=== PATIENT | female | born 1985 | race American Indian/Alaskan Native ===

== ENCOUNTER 2016-05-10 11:23 | Emergency (ER) | payer OTHER ==
[2016-05-10 11:35] VITALS: BP 127/84
[2016-05-10 12:36] LABS: Basophils % (Auto) 0.3 % (0.0-1.8); Eosinophils % (Auto) 1.7 % (0.0-4.3); Hematocrit 42.5 % (30.3-42.9); Hemoglobin 14.5 gm/dl (10.1-14.3); Mean Corpuscular HGB Conc 34 % (30-34); Mean Corpuscular Hemoglobin 32 pg (28-32); Mean Corpuscular Volume 93 fl (79-97); Platelet Count 277 K/mm3 (140-440); Red Blood Count 4.58 M/mm3 (3.65-5.03); White Blood Count 10.2 K/mm3 (4.5-11.0)
[2016-05-10 13:01] LABS: Alanine Aminotransferase 17 units/L (7-56); Albumin 4.1 g/dL (3.9-5); Albumin/Globulin Ratio 1.1 %; Alkaline Phosphatase 53 units/L (35-129); Anion Gap 20 mmol/L; BUN/Creatinine Ratio 12.22; Bilirubin,Total 0.6 mg/dL (0.1-1.2); Blood Urea Nitrogen 11 mg/dL (7-17); Calcium 8.6 mg/dL (8.4-10.2); Carbon Dioxide 21 mmol/L (22-30); Chloride 99.1 mmol/L (98-107); Glucose 161 mg/dL (65-100); Lipase 16 units/L (13-60); Potassium 3.8 mmol/L (3.6-5.0); Sodium 136 mmol/L (137-145); Total Protein 7.9 g/dL (6.3-8.2)
[2016-05-10 14:29] LABS: Bilirubin,Urine Negative (Negative); Blood,Urine Negative (Negative); Ketones,Urine Negative (Negative); Nitrite,Urine Negative (Negative); Protein,Urine <30 mg dL mg/dL (Negative); Urobilinogen,Urine < 0.2 mg/dL (<2.0)
[2016-05-10 14:30] LABS: Leukocyte Esterase,Urine Trace (Negative)
[2016-05-10 14:31] LABS: Mucus,Urine 1+ /HPF
== END 2016-05-11 02:45 | disposition left against medical advice (07) ==
LOC: ED 11:23
DX: R10.13 Epigastric pain (principal); R19.7 Diarrhea, unspecified; R07.9 Chest pain, unspecified; Z53.21 Procedure and treatment not carried out due to patient leaving prior to being seen by health care provider
CPT/HCPCS: 36415; 80053; 81001; 83690; 85025

== ENCOUNTER 2016-05-11 06:38 | Emergency (ER) | payer SELFPAY ==
[2016-05-11 11:47] LABS: Basophils % (Auto) 0.3 % (0.0-1.8); Eosinophils % (Auto) 1.1 % (0.0-4.3); Hematocrit 41.4 % (30.3-42.9); Mean Corpuscular HGB Conc 34 % (30-34); Mean Corpuscular Hemoglobin 32 pg (28-32); Mean Corpuscular Volume 93 fl (79-97); Platelet Count 293 K/mm3 (140-440); Red Blood Count 4.46 M/mm3 (3.65-5.03); Red Cell Distribution Width 12.1 % (13.2-15.2); White Blood Count 10.8 K/mm3 (4.5-11.0)
[2016-05-11] MEDS ORDERED: LIDOCAINE VISCOUS 2% PO ONE (17:00)
[2016-05-11] MEDS ORDERED: PROTONIX PO ONE (17:00)
[2016-05-11] MEDS ORDERED: NORCO 7.5/325 PO ONE (17:00)
[2016-05-11] MEDS ORDERED: ALUM-MAG HYDROX-SIMETH 200-200-20MG/5ML PO ONE (17:00)
--- NOTE | 2016-05-11 17:19 | Emergency Department Report ---
HPI - General Chief Complaint: Abdominal Pain Time Seen by Provider: 05/11/16 16:41 - HPI HPI: The patient is a 31-year-old female presents for evaluation of abdominal pain. The patient reports 2-3 days of epigastric abdominal pain, sharp in quality, currently 4/10 in severity, radiating to the back at times, and associated with nausea, and intermittent episodes of nonbilious, nonbloody emesis and loose watery stools. The patient denies fever, chills, night sweats, bright blood in the stool, dysuria, hematuria, flank pain, genital discharge, inability to pass flatus. ED Past Medical Hx - Past Medical History Hx Hypertension: Yes Additional medical history: gallstones - Surgical History Hx Cholecystectomy: Yes - Social History Smoking Status: Current Every Day Smoker Substance Use Type: Alcohol - Medications Home Medications: Home Medications Medication Instructions Recorded Confirmed Last Taken Type Phentermine HCl [Phentermine HCl] 37.5 mg PO DAILY 09/11/13 09/11/13 08/01/13 History 37.5 Sodium Bicarbonate/Sodium Cit 1 tab PO DAILY 09/11/13 09/17/13 09/07/13 09:00 History [[place] Heartburn Tab Eff] HYDROcodone/ACETAMINOPHEN [[place] 1 each PO Q4H PRN #20 tablet 09/17/13 Unknown Rx 5/325 Tablet] Cyclobenzaprine HCl [Flexeril 5 MG 5 mg PO Q8HR PRN #14 tab 05/11/16 Unknown Rx TAB] Omeprazole Magnesium [PriLOSEC Otc] 20 mg PO QDAY #14 tablet. 05/11/16 Unknown Rx Ondansetron [Zofran TAB] 4 mg PO Q8HR PRN #20 tablet 05/11/16 Unknown Rx ED Review of Systems ROS: Stated complaint: BREATHING PAIN Other details as noted in HPI Constitutional: denies: fever ENT: denies: throat or neck pain Respiratory: denies: cough, shortness of breath Cardiovascular: denies: chest pain Endocrine: denies unexplained weight loss or gain Gastrointestinal: reports abdominal pain, nausea Genitourinary: denies: dysuria Musculoskeletal: denies: leg swelling Skin: denies: rash Neurological: denies: headache Hematological/Lymphatic: denies: easy bleeding or easy bruising Psych: denies sadness or hopelessness Physical Exam - Physical Exam Vital Signs: Vital Signs 05/11/16 07:25 Temperature 98.2 F Pulse Rate 71 Respiratory 17 Rate Blood Pressure 131/80 O2 Sat by Pulse 100 Oximetry Physical Exam: General: well-nourished, well-developed, no acute distress Head: Normocephalic, atraumatic Eyes: normal sclera ENT: Mucous membranes are pink and moist Neck: trachea midline, neck supple, No neck stiffness, no cervical adenopathy Respiratory: Breath sounds equal bilaterally, no wheezing, rales, or rhonchi Cardio: S1 and S2 present, no murmurs, rubs, gallops, capillary refill is brisk Abdomen: Normoactive bowel sounds, soft abdomen, epigastric tenderness to palpation, no rigidity, no guarding or rebound tenderness Musc: No pitting edema Skin: No rash Neuro: no facial drooping, normal speech Psych: Normal affect ED Course Vital Signs 05/11/16 07:25 Temperature 98.2 F Pulse Rate 71 Respiratory 17 Rate Blood Pressure 131/80 O2 Sat by Pulse 100 Oximetry ED Medical Decision Making - Lab Data Result diagrams: 05/11/16 11:23 - Medical Decision Making The patient was seen and examined by myself. The patient is placed on a isotope hydrologist and continuous pulse ox. On initial evaluation, the patient was found to be in no distress. Evaluation orders are placed. The patient is given zofran for nausea, and a GI cocktail and tablet of [place] for pain. Lab results were non-concerning including nml WBC. X-ray of the abdomen is obtained and is negative for air-fluid levels, air under the diaphragm, or other signs of emergent disease process. Medical records are reviewed and revealed that the patient was found to have normal blood work during ED visit 24 hours ago, including normal lipase, LFTs, and WBC. The patient was reevaluated and reported that their symptoms were markedly improved. The patient is stable for discharge with outpatient follow- up. The patient is given follow-up and return instructions. The patient expressed understanding and agreed with the plan. The patient is discharged in stable condition. Critical care attestation.: If time is entered above; I have spent that time in minutes in the direct care of this critically ill patient, excluding procedure time. ED Disposition Clinical Impression: Abdominal pain, acute, epigastric Disposition: DISCHARGED TO HOME OR SELFCARE Is pt being admited?: No Does the pt Need Aspirin: No Condition: Stable Instructions: Peptic Ulcer (ED), Diet for Ulcers and Gastritis (ED), Gastroenteritis (ED), Abdominal Pain (ED) Prescriptions: Cyclobenzaprine HCl [Flexeril 5 MG TAB] 5 mg PO Q8HR PRN #14 tab PRN Reason: Pain Omeprazole Magnesium [PriLOSEC Otc] 20 mg PO QDAY #14 tablet. Ondansetron [Zofran TAB] 4 mg PO Q8HR PRN #20 tablet PRN Reason: Nausea Referrals: PRIMARY CARE,MD [Primary Care Provider] - 3-5 Days Time of Disposition: 17:18
[2016-05-11 17:27] VITALS: BP 116/70
--- NOTE | 2016-05-12 07:42 | XRay Report ---
ABDOMINAL SERIES: History: Epigastric abdominal pain. Erect chest film shows no acute or significant changes involving the heart or lung kowalski. There is no evidence of free air beneath the diaphragms. The gas pattern within the abdomen is unremarkable. There is no evidence of bowel dilatation, significant air-fluid levels, or masses. The psoas margins are adequately visualized. Cholecystectomy changes an intrauterine device are noted. IMPRESSION: No acute abdominal process appreciated.
== END 2016-05-11 18:13 | disposition home or self-care (01) ==
LOC: ED 06:38
DX: R10.13 Epigastric pain (principal); I10 Essential (primary) hypertension; F17.200 Nicotine dependence, unspecified, uncomplicated; Z90.49 Acquired absence of other specified parts of digestive tract
CPT/HCPCS: 36415; 74022; 85025; 99284

== ENCOUNTER 2016-08-21 17:43 | Emergency (ER) | payer SELFPAY ==
[2016-08-21 18:57] LABS: Basophils % (Auto) 0.4 % (0.0-1.8); Eosinophils % (Auto) 1.9 % (0.0-4.3); Hematocrit 42.6 % (30.3-42.9); Hemoglobin 14.5 gm/dl (10.1-14.3); Mean Corpuscular HGB Conc 34 % (30-34); Mean Corpuscular Hemoglobin 32 pg (28-32); Mean Corpuscular Volume 93 fl (79-97); Platelet Count 351 K/mm3 (140-440); Red Blood Count 4.56 M/mm3 (3.65-5.03); Red Cell Distribution Width 12.4 % (13.2-15.2); White Blood Count 13.5 K/mm3 (4.5-11.0)
[2016-08-21 19:14] LABS: Anion Gap 23 mmol/L; Blood Urea Nitrogen 18 mg/dL (7-17); Calcium 9.9 mg/dL (8.4-10.2); Carbon Dioxide 22 mmol/L (22-30); Glucose 95 mg/dL (65-100); Potassium 4.8 mmol/L (3.6-5.0); Sodium 137 mmol/L (137-145)
[2016-08-21 19:47] LABS: Bilirubin,Urine NEG (Negative); Blood,Urine LG (Negative); Ketones,Urine 80 mg/dL (Negative); Leukocyte Esterase,Urine MOD (Negative); Mucus,Urine FEW /HPF; Nitrite,Urine NEG (Negative); Protein,Urine <15 mg/dL mg/dL (Negative); Urobilinogen,Urine < 2.0 mg/dL (<2.0)
--- NOTE | 2016-08-21 20:30 | XRay Report ---
FINAL REPORT EXAM: XR ABDOMEN 2V HISTORY: Abdominal Pain, PATIENT HAS HAD A GASTRIC SLEEVE OPERATION ON July AND HAS CONSTIPATION COMPARISON: None available. FINDINGS: Supine and upright AP views of the abdomen obtained. IUD projects over the pelvis. Surgical clips left upper quadrant compatible with recent gastric sleeve procedure. Surgical clips right upper quadrant from probable prior cholecystectomy. There is diffuse gas-filled prominence of small bowel loops in mid abdomen concerning for postoperative ileus. Developing partial small bowel obstruction cannot be entirely excluded. Moderate stool in the rectosigmoid colon. No gross pathological calcifications. IMPRESSION: Gas-filled prominence of small bowel loops in the mid abdomen concerning for postoperative ileus. Developing partial small bowel obstruction cannot be entirely excluded.
[2016-08-21] MEDS ORDERED: TYLENOL PO ONE (21:46)
[2016-08-21] MEDS ORDERED: TYLENOL ONE (21:47)
[2016-08-22] MEDS ORDERED: NACL ONE (01:52)
[2016-08-22] MEDS ORDERED: CEPHULAC PO ONE (01:56)
--- NOTE | 2016-08-22 02:02 | Emergency Department Report ---
HPI - HPI HPI: Room 26 The patient is a 31-year-old female presenting with a chief complaint of constipation. The patient states she had a gastric sleeve performed in [place] at 08/14/2016. The patient states she came to the emergency department because at 11:00 this morning she noticed hard stool in her rectum that she was unable to pass. The patient states her last bowel movement occurred approximately 3 days ago. Patient states she attempted to use enema and Ex-Lax without success. The patient states she attempted digital manipulation but was still unable to have a bowel movement. Patient denies nausea vomiting or fever. Location: Gastrointestinal system Duration: [see above] Quality:. Constipation Severity: Severe Modifying factors: [see above] Context: [see above] Mode of transportation: [not driving] <KIRK KIRK - Last Filed: 08/22/16 05:44> <MAGUE MUNSON - Last Filed: 08/22/16 08:47> - General Chief Complaint: Abdominal Pain Time Seen by Provider: 08/22/16 01:39 ED Past Medical Hx - Past Medical History Hx Hypertension: Yes Additional medical history: Peptic ulcer disease - Surgical History Hx Cholecystectomy: Yes Additional Surgical History: Lumpectomy-benign - Family History Family history: no significant - Social History Smoking Status: Current Every Day Smoker (1/2 pack per day) Substance Use Type: None <KIRK KIRK - Last Filed: 08/22/16 05:44> <MAGUE MUNSON - Last Filed: 08/22/16 08:47> - Medications Home Medications: Home Medications Medication Instructions Recorded Confirmed Last Taken Type Phentermine HCl [Phentermine HCl] 37.5 mg PO DAILY 09/11/13 09/11/13 08/01/13 History 37.5 Sodium Bicarbonate/Sodium Cit 1 tab PO DAILY 09/11/13 09/17/13 09/07/13 09:00 History [[place] Heartburn Tab Eff] HYDROcodone/ACETAMINOPHEN [[place] 1 each PO Q4H PRN #20 tablet 09/17/13 Unknown Rx 5/325 Tablet] Cyclobenzaprine HCl [Flexeril 5 MG 5 mg PO Q8HR PRN #14 tab 05/11/16 Unknown Rx TAB] Omeprazole Magnesium [PriLOSEC Otc] 20 mg PO QDAY #14 tablet. 05/11/16 Unknown Rx Ondansetron [Zofran TAB] 4 mg PO Q8HR PRN #20 tablet 05/11/16 Unknown Rx Docusate Sodium [Colace] 100 mg PO BID #60 capsule 08/22/16 Unknown Rx Lactulose [Cephulac] 20 gm PO QDAY #90 ml 08/22/16 Unknown Rx Sulfamethoxazole/Trimethoprim 1 each PO BID #14 tablet 08/22/16 Unknown Rx [Bactrim DS TAB] ED Review of Systems ROS: Stated complaint: CONSTIPATED/PAIN/HOT/COLD SWEATS Other details as noted in HPI Comment: All other systems reviewed and negative Constitutional: denies: chills, fever Eyes: denies: eye pain, eye discharge, vision change ENT: denies: ear pain, throat pain Respiratory: denies: cough, shortness of breath, wheezing Cardiovascular: denies: chest pain, palpitations Endocrine: no symptoms reported Gastrointestinal: abdominal pain, constipation. denies: nausea, vomiting, diarrhea Genitourinary: denies: urgency, dysuria, discharge Musculoskeletal: denies: back pain, joint swelling, arthralgia Skin: denies: rash, lesions Neurological: denies: headache, weakness, paresthesias Psychiatric: denies: anxiety, depression Hematological/Lymphatic: denies: easy bleeding, easy bruising <KIRK KIRK - Last Filed: 08/22/16 05:44> ROS: Stated complaint: CONSTIPATED/PAIN/HOT/COLD SWEATS Other details as noted in HPI <MAGUE MUNSON - Last Filed: 08/22/16 08:47> Physical Exam - Physical Exam Vital Signs: Vital Signs 08/21/16 08/21/16 18:04 18:16 Temperature 98.8 F 98.8 F Pulse Rate 106 H 106 H Respiratory 18 Rate Blood Pressure 117/84 Blood Pressure 117/84 [Right] O2 Sat by Pulse 100 100 Oximetry Physical Exam: GENERAL: The patient is well-developed well-nourished female lying on stretcher not appearing to be in acute distress. [] HEENT: Normocephalic. Atraumatic. Extraocular motions are intact. Patient has moist mucous membranes. NECK: Supple. Trachea midline CHEST/LUNGS: Clear to auscultation. There is no respiratory distress noted. HEART/CARDIOVASCULAR: Regular. There is no tachycardia. There is no gallop rub or murmur. ABDOMEN: Abdomen is soft, with appropriate postop tenderness. There is no tenderness to palpation in the lower abdomen. Patient has normal bowel sounds. There is no abdominal distention. SKIN: There is no rash. There is no edema. There is no diaphoresis. Abdominal surgical sites are clean dry and intact. NEURO: The patient is awake, alert, and oriented. The patient is cooperative. The patient has normal speech MUSCULOSKELETAL: There is no evidence of acute injury. <KIRK KIRK - Last Filed: 08/22/16 05:44> - Physical Exam Vital Signs: Vital Signs 08/21/16 08/21/16 18:04 18:16 Temperature 98.8 F 98.8 F Pulse Rate 106 H 106 H Respiratory 18 Rate Blood Pressure 117/84 Blood Pressure 117/84 [Right] O2 Sat by Pulse 100 100 Oximetry <MAGUE MUNSON - Last Filed: 08/22/16 08:47> ED Course Vital Signs 08/21/16 08/21/16 18:04 18:16 Temperature 98.8 F 98.8 F Pulse Rate 106 H 106 H Respiratory 18 Rate Blood Pressure 117/84 Blood Pressure 117/84 [Right] O2 Sat by Pulse 100 100 Oximetry - Reevaluation(s) Reevaluation #1: 08/22/16 ~04:00 Manual disimpaction performed for as long as patient would tolerate. Soapsuds enema performed afterwards <KIRK KIRK - Last Filed: 08/22/16 05:44> Vital Signs 08/21/16 08/21/16 18:04 18:16 Temperature 98.8 F 98.8 F Pulse Rate 106 H 106 H Respiratory 18 Rate Blood Pressure 117/84 Blood Pressure 117/84 [Right] O2 Sat by Pulse 100 100 Oximetry <MAGUE MUNSON - Last Filed: 08/22/16 08:47> ED Medical Decision Making - Lab Data Result diagrams: 08/21/16 18:43 08/21/16 18:43 Laboratory Tests 08/21/16 08/21/16 08/21/16 18:08 18:43 18:43 WBC 13.5 H RBC 4.56 Hgb 14.5 H Hct 42.6 MCV 93 MCH 32 MCHC 34 RDW 12.4 L Plt Count 351 Lymph % (Auto) 15.0 D[place] % (Auto) 5.0 Eos % (Auto) 1.9 Baso % (Auto) 0.4 Lymph # 2.0 Dickey # 0.7 Eos # 0.3 Baso # 0.1 Seg Neutrophils % 77.7 H Seg Neutrophils # 10.5 H Sodium 137 Potassium 4.8 Chloride 97.0 L Carbon Dioxide 22 Anion Gap 23 BUN 18 H Creatinine 0.8 Estimated GFR > 60 BUN/Creatinine Ratio 22.50 Glucose 95 Calcium 9.9 Urine Color Yellow Urine Turbidity Clear Urine pH 6.0 Ur Specific Williams 1.018 Urine Protein <15 mg/dl Urine Glucose (UA) Neg Urine Ketones 80 Urine Blood Lg Urine Nitrite Neg Ur Reducing Substances Not Reportable Urine Bilirubin Neg Urine Ictotest Not Reportable Urine Urobilinogen < 2.0 Ur Leukocyte Esterase Mod Urine WBC (Auto) 45.0 H Urine RBC (Auto) 100.0 U Epithel Cells (Auto) 10.0 Urine Mucus Few Urine HCG, Qual Negative - Radiology Data Radiology results: report reviewed (two-view abdominal x-ray, CT abdomen and pelvis), image reviewed (two-view abdominal x-ray, CT abdomen and pelvis) interpreted by me: Abdominal x-ray 2 view- air-fluid levels seen an upright abdomen. Stool seen in colon Abdominal x-ray (read by radiologist)-gastrointestinal prominence of small bowel loops in the mid abdomen concerning for postoperative ileus. Developing partial small bowel obstruction cannot be entirely excluded CT abdomen and pelvis (read by radiologist)-findings concerning for possible postoperative ileus. Mild dilation of large and small bowel loops. A large amount of stool in the rectosigmoid colon. This may continue to ileus. Appendix is normal in caliber. No inflammatory changes in the appendix. Surgical changes of gastric sleeve procedure. No free air or abscess. No other gross acute findings - Differential Diagnosis fecal impaction, SBO, constipation <KIRK KIRK - Last Filed: 08/22/16 05:44> - Lab Data Result diagrams: 08/21/16 18:43 08/21/16 18:43 - Medical Decision Making Patient had significant stool output after GoLYTELY and reports feeling better. She'll be discharged as per Dr. Kirk's plan with medication for UTI and constipation <MAGUE MUNSON - Last Filed: 08/22/16 08:47> Critical care attestation.: If time is entered above; I have spent that time in minutes in the direct care of this critically ill patient, excluding procedure time. <KIRK KIRK - Last Filed: 08/22/16 05:44> Critical care attestation.: If time is entered above; I have spent that time in minutes in the direct care of this critically ill patient, excluding procedure time. <MAGUE MUNSON - Last Filed: 08/22/16 08:47> ED Disposition <KIRK KIRK - Last Filed: 08/22/16 05:44> Is pt being admited?: No Does the pt Need Aspirin: No Time of Disposition: 08:47 <MAGUE MUNSON - Last Filed: 08/22/16 08:47> Clinical Impression: Constipation, UTI (urinary tract infection) Disposition: DISCHARGED TO HOME OR SELFCARE Condition: Stable Instructions: Constipation (ED) Prescriptions: Docusate Sodium [Colace] 100 mg PO BID #60 capsule Lactulose [Cephulac] 20 gm PO QDAY #90 ml Sulfamethoxazole/Trimethoprim [Bactrim DS TAB] 1 each PO BID #14 tablet Referrals: JEANE VERGARA MD [Primary Care Provider] - 3-5 Days
--- NOTE | 2016-08-22 03:38 | Cat Scan Report ---
FINAL REPORT EXAM: CT ABDOMEN PELVIS W CON HISTORY: abdominal pain, constipation. Recent gastric slee COMPARISON: None available. TECHNIQUE: Contiguous axial images were obtained. Additional sagittal and coronal reformatted images were obtained. Administration of IV contrast given per institution protocol. Images submitted for interpretation. FINDINGS: Large amount of stool in the rectosigmoid colon. Mild diffuse prominence of the colon. Colon measures up to 5 centimeters in diameter. Fluid-like stool within the right colon and transverse colon. Moderate stool in the left colon. Portion of the distal descending colon and sigmoid colon are decompressed. This may be a transient finding. No twisting of the sigmoid colon to suggest volvulus. The appendix is gas-filled and normal in caliber. High attenuation material within distal appendix may reflect appendicolith or inspissated stool. Recent gastric sleeve procedure. No free air or abscess. Mild dilatation of small bowel loops in the mid abdomen measuring up to 3 centimeters. Lung bases are clear. Mild focal fatty infiltration of the liver along the falciform ligament. Gallbladder surgically absent. Common bile duct measures 3 millimeters at the pancreatic head. Spleen, pancreas, adrenal glands are grossly unremarkable. No solid renal lesion or hydronephrosis. Aorta and IVC normal in caliber. IUD is present within the uterus. Otherwise, uterus and ovary are grossly unremarkable. No free fluid or lymphadenopathy. Bony pelvis and lumbar spine are grossly intact. IMPRESSION: Findings concerning for possible postoperative ileus. Mild dilatation of large and small bowel loops. Large amount of stool in the rectosigmoid colon. This may contribute to ileus. The appendix is normal in caliber. No inflammatory changes the appendix. Surgical changes of gastric sleeve procedure. No free air or abscess. No other gross acute findings.
[2016-08-22] MEDS ORDERED: FLEET MINERAL OIL PR ONE (04:54)
[2016-08-22] MEDS ORDERED: GOLYTELY PO ONE (05:53)
[2016-08-22 09:27] VITALS: BP 120/87
== END 2016-08-22 09:28 | disposition home or self-care (01) ==
LOC: ED 17:43
DX: K59.00 Constipation, unspecified (principal); N39.0 Urinary tract infection, site not specified; I10 Essential (primary) hypertension; F17.200 Nicotine dependence, unspecified, uncomplicated; Z90.49 Acquired absence of other specified parts of digestive tract; Z90.89 Acquired absence of other organs
CPT/HCPCS: 36415; 74020; 74177; 80048; 81001; 81025; 85025; 99285; Q9967

== ENCOUNTER 2019-06-22 22:07 | Emergency (ER) | payer MEDICAID ==
[2019-06-22 22:19] VITALS: BP 120/52
[2019-06-22] MEDS ORDERED: ACETAMINOPHEN 500 MG TAB PO ONE (22:39)
--- NOTE | 2019-06-22 22:45 | Emergency Department Report ---
ED General Adult HPI - General Chief complaint: Dental/Oral Stated complaint: TOOTHACHE HEADACHE Source: patient Mode of arrival: Ambulatory Limitations: No Limitations - History of Present Illness Initial comments: Patient is a A0 34-year-old -Lith[place]ian female who is approximately 20 weeks gestation and who has a past medical history of hypertension presents to the ED with complaint of acute onset persistent severe right maxillary premolar and molar toothache with swollen right maxillary gums for the last 2 weeks worse in the last 2 days. Patient states that she is currently taking amoxicillin 500 mg twice a day but that her symptoms got worse in the last 12 hours. Patient denies dizziness, syncope, chest pain, fever, chills, cough, sore throat, headache, change in vision, abdominal pain, vaginal bleeding, dysuria, urinary frequency and urgency or shortness of breath. MD Complaint: dental pain; swollen gums -: Sudden, week(s) (2) Location: mouth Radiation: non-radiation Severity scale (0 -10): 7 Quality: aching, sharp Consistency: constant Improves with: none Worsens with: none Associated Symptoms: denies other symptoms. denies: confusion, chest pain, cough, diaphoresis, fever/chills, headaches, loss of appetite, malaise, nausea/vomiting, seizure, shortness of breath, syncope, other Treatments Prior to Arrival: none - Related Data Home Medications Medication Instructions Recorded Confirmed Last Taken Phentermine HCl 37.5 mg PO DAILY 09/11/13 09/11/13 08/01/13 37.5 Sodium Bicarbonate/Sod Citrat 1 tab PO DAILY 09/11/13 09/17/13 09/07/13 09:00 [[facility]ie-[place] Heartburn Tab Eff] Previous Rx's Medication Instructions Recorded Last Taken Type HYDROcodone/ACETAMINOPHEN [Jupiter 1 each PO Q4H PRN #20 tablet 09/17/13 Unknown Rx 5/325 Tablet] Cyclobenzaprine HCl [Flexeril 5 MG 5 mg PO Q8HR PRN #14 tab 05/11/16 Unknown Rx TAB] Omeprazole Magnesium [PriLOSEC Otc] 20 mg PO QDAY #14 tablet. 05/11/16 Unknown Rx Ondansetron [Zofran TAB] 4 mg PO Q8HR PRN #20 tablet 05/11/16 Unknown Rx Docusate Sodium [Colace] 100 mg PO BID #60 capsule 08/22/16 Unknown Rx Lactulose [Cephulac] 20 gm PO QDAY #90 ml 08/22/16 Unknown Rx Sulfamethoxazole/Trimethoprim 1 each PO BID #14 tablet 08/22/16 Unknown Rx [Bactrim DS TAB] Acetaminophen [Acetaminophen TAB] 500 mg PO Q6HR PRN #60 tablet 06/22/19 Unknown Rx Clindamycin [Clindamycin CAP] 300 mg PO Q8HR #60 capsule 06/22/19 Unknown Rx Allergies Allergy/AdvReac Type Severity Reaction Status Date / Time No Known Allergies Allergy Verified 05/11/16 07:35 ED Review of Systems ROS: Stated complaint: TOOTHACHE HEADACHE Other details as noted in HPI Constitutional: denies: chills, fever Eyes: denies: eye pain, eye discharge, vision change ENT: dental pain (painful right maxillary premolar and molar teeth), other (swollen right maxillary gums). denies: ear pain, throat pain Respiratory: denies: cough, shortness of breath, wheezing Cardiovascular: denies: chest pain, palpitations Endocrine: no symptoms reported Gastrointestinal: denies: abdominal pain, nausea, diarrhea Genitourinary: denies: urgency, dysuria, discharge Musculoskeletal: denies: back pain, joint swelling, arthralgia Skin: denies: rash, lesions Neurological: denies: headache, weakness, paresthesias Psychiatric: denies: anxiety, depression Hematological/Lymphatic: denies: easy bleeding, easy bruising ED Past Medical Hx - Past Medical History Previous Medical History?: Yes Hx Hypertension: Yes Additional medical history: Peptic ulcer disease - Surgical History Past Surgical History?: Yes Hx Cholecystectomy: Yes Additional Surgical History: Lumpectomy-benign - Social History Smoking Status: Current Every Day Smoker Substance Use Type: Alcohol, Marijuana - Medications Home Medications: Home Medications Medication Instructions Recorded Confirmed Last Taken Type Phentermine HCl 37.5 mg PO DAILY 09/11/13 09/11/13 08/01/13 History 37.5 Sodium Bicarbonate/Sod Citrat 1 tab PO DAILY 09/11/13 09/17/13 09/07/13 09:00 History [[facility]ie-[place] Heartburn Tab Eff] HYDROcodone/ACETAMINOPHEN [Jupiter 1 each PO Q4H PRN #20 tablet 09/17/13 Unknown Rx 5/325 Tablet] Cyclobenzaprine HCl [Flexeril 5 MG 5 mg PO Q8HR PRN #14 tab 05/11/16 Unknown Rx TAB] Omeprazole Magnesium [PriLOSEC Otc] 20 mg PO QDAY #14 tablet. 05/11/16 Unknown Rx Ondansetron [Zofran TAB] 4 mg PO Q8HR PRN #20 tablet 05/11/16 Unknown Rx Docusate Sodium [Colace] 100 mg PO BID #60 capsule 08/22/16 Unknown Rx Lactulose [Cephulac] 20 gm PO QDAY #90 ml 08/22/16 Unknown Rx Sulfamethoxazole/Trimethoprim 1 each PO BID #14 tablet 08/22/16 Unknown Rx [Bactrim DS TAB] Acetaminophen [Acetaminophen TAB] 500 mg PO Q6HR PRN #60 tablet 06/22/19 Unknown Rx Clindamycin [Clindamycin CAP] 300 mg PO Q8HR #60 capsule 06/22/19 Unknown Rx ED Physical Exam - General Limitations: No Limitations General appearance: alert, in no apparent distress - Head Head exam: Present: atraumatic, normocephalic, normal inspection - Eye Eye exam: Present: normal appearance, PERRL, EOMI Pupils: Present: normal accommodation - ENT ENT exam: Present: mucous membranes moist, TM's normal bilaterally, normal external ear exam, other (swollen tender right maxillary gingiva; severely tender right maxillary premolar and molar teeth) - Neck Neck exam: Present: normal inspection, full ROM. Absent: tenderness, lymphadenopathy - Respiratory Respiratory exam: Present: normal lung sounds bilaterally. Absent: respiratory distress, wheezes, rhonchi, chest wall tenderness - Cardiovascular Cardiovascular Exam: Present: normal rhythm, tachycardia, normal heart sounds. Absent: systolic murmur, diastolic murmur, rubs, gallop - GI/Abdominal GI/Abdominal exam: Present: soft, normal bowel sounds. Absent: tenderness, guarding, diminished bowel sounds, hyperactive bowel sounds - Extremities Exam Extremities exam: Present: normal inspection, full ROM, normal capillary refill. Absent: pedal edema - Back Exam Back exam: Present: normal inspection, full ROM. Absent: tenderness, CVA tenderness (R), CVA tenderness (L), muscle spasm, paraspinal tenderness, vertebral tenderness - Neurological Exam Neurological exam: Present: alert, oriented X3, CN II-XII intact, normal gait, reflexes normal - Psychiatric Psychiatric exam: Present: normal affect, normal mood - Skin Skin exam: Present: warm, dry, intact, normal color. Absent: rash ED Course Vital Signs 06/22/19 22:11 Temperature 98.6 F Pulse Rate 108 H Respiratory 18 Rate Blood Pressure 120/52 O2 Sat by Pulse 98 Oximetry ED Medical Decision Making - Medical Decision Making This is a A0 34-year-old -Lithuanian female who is approximately 20 weeks gestation and who presented to the ED with complaint of acute onset persistent severe painful swollen right maxillary gingiva and severely painful premolar and molar toothache for the last 2 weeks worse in the last 3 days. In the ED, patient is alert and oriented x3 and is not in distress but tachycardic in triage. Patient was treated for pain with Tylenol in the ED and discharged home on clindamycin and Tylenol as needed. Patient was advised to follow-up with her dentist in 7 to 10 days for reevaluation or return to the ED immediately if symptoms get worse. Tachycardia that was initially elicited during triage resolved before the patient will discharge. - Differential Diagnosis dental abscess; gingivitis; dental caries; lymphadenopathy Critical care attestation.: If time is entered above; I have spent that time in minutes in the direct care of this critically ill patient, excluding procedure time. ED Disposition Clinical Impression: Acute gingivitis, Dental caries, Dental abscess Disposition: TO HOME OR SELFCARE Is pt being admited?: No Does the pt Need Aspirin: No Condition: Stable Instructions: Dental Abscess (ED), Gingivitis (ED), Dental Caries (ED) Additional Instructions: Take medication with food, drink plenty of fluids and follow-up with your primary care physician in 7 to 10 days for reevaluation. Return to the ED immediately if symptoms get worse. Prescriptions: Acetaminophen [Acetaminophen TAB] 500 mg PO Q6HR PRN #60 tablet PRN Reason: Pain , Severe (7-10) Clindamycin [Clindamycin CAP] 300 mg PO Q8HR #60 capsule Referrals: [facility] [Outside] - 7-10 days Time of Disposition: 22:42 Print Language: SENEGALESE
== END 2019-06-22 22:48 | disposition home or self-care (01) ==
LOC: ED 22:07
DX: K05.00 Acute gingivitis, plaque induced (principal); K04.7 Periapical abscess without sinus; K02.9 Dental caries, unspecified; F17.200 Nicotine dependence, unspecified, uncomplicated; F12.90 Cannabis use, unspecified, uncomplicated; I10 Essential (primary) hypertension; Z98.890 Other specified postprocedural states; Z79.899 Other long term (current) drug therapy; Z90.49 Acquired absence of other specified parts of digestive tract
CPT/HCPCS: 99282

== ENCOUNTER 2020-07-11 21:38 | Emergency (ER) | payer MEDICAID ==
--- NOTE | 2020-07-11 22:27 | Emergency Department Report ---
ED General Adult HPI - General Chief complaint: Skin/Abscess/Foreign Body Stated complaint: INFECTION IN NAVAL Source: patient Mode of arrival: Ambulatory Limitations: No Limitations - History of Present Illness Initial comments: Patient is a 35-year-old -Swazi female with no past medical history presents to the ED with complaint of acute onset painful swollen erythematous maculopapular rash around her navel for the last 2 days. Patient states that the pain the swelling of worsened in the last 12 hours. Patient states that the pain is worse with movement or any lifting. Patient denies fever, chills, nausea, vomiting, diarrhea, dizziness, syncope, traumatic injury, headache, chest pain, shortness of breath, lightheadedness or change in vision. MD Complaint: swollen, erythematous maculopapular rash around the navel -: Sudden, days(s) (2) Location: abdomen Radiation: non-radiation Severity scale (0 -10): 5 Quality: aching, sharp Consistency: constant Improves with: none Worsens with: movement Associated Symptoms: denies other symptoms, rash (swollen painful erythematous maculopapular rashes on the navel). denies: confusion, chest pain, cough, diaphoresis, fever/chills, headaches, loss of appetite, malaise, nausea/vomiting, seizure, shortness of breath, syncope, weakness Treatments Prior to Arrival: none - Related Data Home Medications Medication Instructions Recorded Confirmed Last Taken Melatonin 2 cap PO HS PRN 10/17/19 10/31/19 10/30/19 Vitamin 1 tab PO DAILY 10/17/19 10/31/19 10/30/19 Previous Rx's Medication Instructions Recorded Last Taken Type Ciprofloxacin HCl 250 mg PO BID #14 tablet 11/04/19 Unknown Rx Docusate Sodium [Colace] 100 mg PO BID PRN #60 capsule 11/04/19 Unknown Rx Ferrous Sulfate [Feosol 325 MG tab] 325 mg PO BID #60 tablet 11/04/19 Unknown Rx Ibuprofen [Motrin] 600 mg PO Q6H PRN #30 tablet 11/04/19 Unknown Rx oxyCODONE /ACETAMINOPHEN [Percocet 1 tab PO Q6HR PRN #40 tablet 11/04/19 Unknown Rx 5/325] Ibuprofen [Motrin] 800 mg PO Q8HR PRN #30 tablet 07/11/20 Unknown Rx Ondansetron [Zofran Odt] 4 mg PO Q8HR PRN #15 tab.rapdis 07/11/20 Unknown Rx Sulfamethoxazole/Trimethoprim 1 each PO Q12H #20 tablet 07/11/20 Unknown Rx [Bactrim DS TAB] Allergies Allergy/AdvReac Type Severity Reaction Status Date / Time No Known Allergies Allergy Verified 05/11/16 07:35 ED Review of Systems ROS: Stated complaint: INFECTION IN NAVAL Other details as noted in HPI Constitutional: denies: chills, fever Eyes: denies: eye pain, eye discharge, vision change ENT: denies: ear pain, throat pain Respiratory: denies: cough, shortness of breath, wheezing Cardiovascular: denies: chest pain, palpitations Endocrine: no symptoms reported Gastrointestinal: abdominal pain (localized mild pain around the navel due to erythematous maculopapular rash). denies: nausea, vomiting, diarrhea Genitourinary: denies: urgency, dysuria, discharge Musculoskeletal: denies: back pain, joint swelling, arthralgia Skin: rash (Erythematous maculopapular nonfluctuant swollen rash on the umbilical navel area). denies: lesions, change in color, change in hair/nails, pruritus, other Neurological: denies: headache, weakness, paresthesias Psychiatric: denies: anxiety, depression Hematological/Lymphatic: denies: easy bleeding, easy bruising ED Past Medical Hx - Past Medical History Hx Hypertension: No Hx Heart Attack/AMI: No Hx Diabetes: No Hx Deep Vein Thrombosis: No Hx Liver Disease: No Hx Renal Disease: No Hx Sickle Cell Disease: No Hx Seizures: No Hx Asthma: No Hx COPD: No Hx HIV: No Additional medical history: Peptic ulcer disease, SBO - Surgical History Hx Pacemaker: No Hx Internal Defibrillator: No Hx Cholecystectomy: Yes Additional Surgical History: Lumpectomy-benign, gastric sleeve - Social History Smoking Status: Current Every Day Smoker Substance Use Type: Alcohol, Marijuana - Medications Home Medications: Home Medications Medication Instructions Recorded Confirmed Last Taken Type Melatonin 2 cap PO HS PRN 10/17/19 10/31/19 10/30/19 History Vitamin 1 tab PO DAILY 10/17/19 10/31/19 10/30/19 History Ciprofloxacin HCl 250 mg PO BID #14 tablet 11/04/19 Unknown Rx Docusate Sodium [Colace] 100 mg PO BID PRN #60 capsule 11/04/19 Unknown Rx Ferrous Sulfate [Feosol 325 MG tab] 325 mg PO BID #60 tablet 11/04/19 Unknown Rx Ibuprofen [Motrin] 600 mg PO Q6H PRN #30 tablet 11/04/19 Unknown Rx oxyCODONE /ACETAMINOPHEN [Percocet 1 tab PO Q6HR PRN #40 tablet 11/04/19 Unknown Rx 5/325] Ibuprofen [Motrin] 800 mg PO Q8HR PRN #30 tablet 07/11/20 Unknown Rx Ondansetron [Zofran Odt] 4 mg PO Q8HR PRN #15 tab.rapdis 07/11/20 Unknown Rx Sulfamethoxazole/Trimethoprim 1 each PO Q12H #20 tablet 07/11/20 Unknown Rx [Bactrim DS TAB] ED Physical Exam - General Limitations: No Limitations General appearance: alert, in no apparent distress - Head Head exam: Present: atraumatic, normocephalic, normal inspection - Eye Eye exam: Present: normal appearance, PERRL, EOMI Pupils: Present: normal accommodation - ENT ENT exam: Present: normal exam, normal orophraynx, mucous membranes moist, TM's normal bilaterally, normal external ear exam - Neck Neck exam: Present: normal inspection, full ROM - Respiratory Respiratory exam: Present: normal lung sounds bilaterally. Absent: respiratory distress, wheezes, rales, rhonchi, chest wall tenderness, accessory muscle use, decreased breath sounds, prolonged expiratory - Cardiovascular Cardiovascular Exam: Present: regular rate, normal rhythm, normal heart sounds. Absent: systolic murmur, diastolic murmur, rubs, gallop - GI/Abdominal GI/Abdominal exam: Present: soft, normal bowel sounds. Absent: distended, tenderness, guarding, rebound, hyperactive bowel sounds, hypoactive bowel sounds, organomegaly - Extremities Exam Extremities exam: Present: normal inspection, full ROM, normal capillary refill - Back Exam Back exam: Present: normal inspection, full ROM. Absent: tenderness, CVA tenderness (R), CVA tenderness (L), muscle spasm, paraspinal tenderness, vertebral tenderness - Neurological Exam Neurological exam: Present: alert, oriented X3, CN II-XII intact, normal gait, reflexes normal - Psychiatric Psychiatric exam: Present: normal affect, normal mood, anxious - Skin Skin exam: Present: warm, dry, intact, normal color, rash (Erythematous maculopapular tender nonfluctuant rash on the navel ), erythema ED Medical Decision Making - Medical Decision Making This is a 35-year-old -Swazi female with no past medical history presents to the ED with complaint of acute onset painful swollen erythematous maculopapular rash around her navel for the last 2 days. Patient states that the pain the swelling of worsened in the last 12 hours. Patient states that the pain is worse with movement or any lifting. In the ED, patient is alert and oriented x3 and is not in any distress. Patient was discharged home on antibiotics and pain medications and advised to follow-up with her primary care physician in 5 to 7 days for reevaluation or return to the ED immediately if symptoms get worse. - Differential Diagnosis Cellulitis; folliculitis; cutaneous abscess Critical care attestation.: If time is entered above; I have spent that time in minutes in the direct care of this critically ill patient, excluding procedure time. ED Disposition Clinical Impression: Abdominal wall cellulitis, Acute folliculitis, Abscess of skin of abdomen Disposition: DC- TO HOME OR SELFCARE Is pt being admited?: No Does the pt Need Aspirin: No Condition: Stable Instructions: Skin Abscess, [id number], Cellulitis, Adult, [id number] Additional Instructions: Take medication with food, drink plenty of fluids and follow-up with your primary care physician in 7 to 10 days for reevaluation. Return to the ED immediately if symptoms get worse. Prescriptions: Sulfamethoxazole/Trimethoprim [Bactrim DS TAB] 1 each PO Q12H #20 tablet Ibuprofen [Motrin] 800 mg PO Q8HR PRN #30 tablet PRN Reason: Pain , Severe (7-10) Ondansetron [Zofran Odt] 4 mg PO Q8HR PRN #15 tab.rapdis PRN Reason: Nausea Referrals: [facility] [Provider Group] - 7-10 days Time of Disposition: 22:30 Print Language: LITHUANIAN
[2020-07-12 06:49] VITALS: BP 137/98
== END 2020-07-11 23:20 | disposition home or self-care (01) ==
LOC: ED 21:38
DX: L03.311 Cellulitis of abdominal wall (principal); L73.9 Follicular disorder, unspecified; L02.211 Cutaneous abscess of abdominal wall; F17.200 Nicotine dependence, unspecified, uncomplicated; F12.10 Cannabis abuse, uncomplicated; Z98.890 Other specified postprocedural states; Z79.1 Long term (current) use of non-steroidal anti-inflammatories (NSAID); Z79.899 Other long term (current) drug therapy
CPT/HCPCS: 99281

== ENCOUNTER 2020-09-17 18:16 | Inpatient (IN) | payer MEDICAID ==
[2020-09-17 20:08] LABS: Basophils % (Auto) 0.4 % (0.0-1.8); Lymphocytes # (Auto) 0.9 K/mm3 (1.2-5.4); Lymphocytes % (Auto) 11.9 % (13.4-35.0); Mean Corpuscular HGB Conc 36 % (30-34); Mean Corpuscular Volume 103 fl (79-97); Monocytes # (Auto) 0.6 K/mm3 (0.0-0.8); Monocytes % (Auto) 8.4 % (0.0-7.3); Platelet Count 190 K/mm3 (140-440); Red Blood Count 4.24 M/mm3 (3.65-5.03); Red Cell Distribution Width 15.2 % (13.2-15.2)
[2020-09-17 20:13] LABS: Hematocrit 43.7 % (30.3-42.9); Hemoglobin 15.6 gm/dl (10.1-14.3)
[2020-09-17 20:35] LABS: Alanine Aminotransferase 102 units/L (7-56); Albumin 4.5 g/dL (3.9-5); Blood Urea Nitrogen 8 mg/dL (7-17); Calcium 9.3 mg/dL (8.4-10.2); Hemolysis Index 16
[2020-09-17 20:45] LABS: BUN/Creatinine Ratio 13
[2020-09-17] MEDS ORDERED: SODIUM CHLORIDE 0.9% 1000 ML 1,000 ML IV ONE (22:19)
[2020-09-17] MEDS ORDERED: MORPHINE 4 MG/1 ML INJ IV ONE (22:19)
[2020-09-17] MEDS ORDERED: FAMOTIDINE 20 MG/2 ML INJ IV ONE (22:19)
[2020-09-17] MEDS ORDERED: ONDANSETRON 4 MG/2 ML INJ IV ONE (22:19)
--- NOTE | 2020-09-18 00:08 | Cat Scan Report ---
CT ABDOMEN AND PELVIS WITH IV CONTRAST INDICATION: Patient complains of abdominal pain with nausea and vomiting. COMPARISON: 08/22/2016 TECHNIQUE: Axial CT images were obtained through the abdomen and pelvis after 100 mL IV contrast. All CT scans a t this location are performed using CT dose reduction for ALARA by means of automated exposure contro l. FINDINGS -- ABDOMEN: Lung Bases: No acute abnormality. Liver: Severe fatty liver. Gallbladder: Removed. Bile Ducts: Normal. Pancreas: Extensive peripancreatic stranding and inflammation.. Spleen: Normal. Adrenals: Normal. Right Kidney and Proximal Ureter: Normal. Left Kidney and Proximal Ureter: Normal. Stomach and Bowel: Normal. Lymph Nodes: No significant adenopathy. Aorta: No significant abnormality. IVC: Normal. Additional Findings: None. FINDINGS -- PELVIS: Urinary Bladder and Distal Ureters: Normal. Reproductive Organs: Hysterectomy. Appendix: Normal. Bowel: No acute abnormality. Free Fluid: Small free pelvic fluid. Lymph Nodes: No significant adenopathy. Additional Findings: None. Skeletal System: No acute abnormality. IMPRESSION: 1. Acute pancreatitis. 2. Severe fatty liver. 3. Prior cholecystectomy. 4. Small scattered intra-abdominal fluid. Signer Name: Mike Barger MD Signed: 09/18/2020 12:03 AM Workstation Name: [id number]
--- NOTE | 2020-09-18 00:40 | Emergency Department Report ---
ED N/V/D HPI - General Chief complaint: Nausea/Vomiting/Diarrhea Stated complaint: EPIGASTRIC PAIN Source: patient, EMS Mode of arrival: Stretcher Limitations: No Limitations - History of Present Illness Initial comments: Patient is a 35-year-old -Filipino female with a history of peptic ulcer disease, chronic alcohol abuse and s/p cholecystectomy and gastric sleeve surg timi who presents to the ED with complaint of acute onset persistent gastric pain and intractable nausea and vomiting for over 12 hours. Patient states that she has not been able to keep anything down including fluids because of intractable nausea and vomiting and worsening epigastric pain. Patient states that the pain radiates to the mid posterior thoracic area. Patient denies hematemesis, chest pain, shortness of breath, dizziness, syncope, diarrhea, fever, chills, cough, headache, dysuria, urinary frequency and urgency, vaginal bleeding, vaginal discharge, constipation or hematuria. MD complaint: nausea, vomiting, abdominal pain -: Sudden, hour(s) (12) Description of Vomiting: food contents, watery Associated Abdominal Pain: Yes (epigastric pain) Location: epigastric Radiation: other (Mid posterior thoracic pain) Severity: severe Pain Scale: 8 Quality: cramping, aching, sharp Consistency: constant Improves with: none Worsens with: eating, vomiting Associated Symptoms: denies other symptoms. denies: myalgias, chest pain, cough, diaphoresis, fever/chills, headaches, loss of appetite, malaise, nausea/vomiting, rash, dysuria, shortness of breath, syncope, weakness - Related Data Home Medications Medication Instructions Recorded Confirmed Last Taken Melatonin 2 cap PO HS PRN 10/17/19 10/31/19 10/30/19 Vitamin 1 tab PO DAILY 10/17/19 10/31/19 10/30/19 Previous Rx's Medication Instructions Recorded Last Taken Type Ciprofloxacin HCl 250 mg PO BID #14 tablet 11/04/19 Unknown Rx Docusate Sodium [Colace] 100 mg PO BID PRN #60 capsule 11/04/19 Unknown Rx Ferrous Sulfate [Feosol 325 MG tab] 325 mg PO BID #60 tablet 11/04/19 Unknown Rx Ibuprofen [Motrin] 600 mg PO Q6H PRN #30 tablet 11/04/19 Unknown Rx oxyCODONE /ACETAMINOPHEN [Percocet 1 tab PO Q6HR PRN #40 tablet 11/04/19 Unknown Rx 5/325] Ibuprofen [Motrin] 800 mg PO Q8HR PRN #30 tablet 07/11/20 Unknown Rx Ondansetron [Zofran Odt] 4 mg PO Q8HR PRN #15 tab.rapdis 07/11/20 Unknown Rx Sulfamethoxazole/Trimethoprim 1 each PO Q12H #20 tablet 07/11/20 Unknown Rx [Bactrim DS TAB] Allergies Allergy/AdvReac Type Severity Reaction Status Date / Time No Known Allergies Allergy Verified 05/11/16 07:35 ED Review of Systems ROS: Stated complaint: EPIGASTRIC PAIN Other details as noted in HPI Constitutional: denies: chills, fever Eyes: denies: eye pain, eye discharge, vision change ENT: denies: ear pain, throat pain Respiratory: denies: cough, shortness of breath, wheezing Cardiovascular: denies: chest pain, palpitations Endocrine: no symptoms reported Gastrointestinal: abdominal pain (Epigastric pain), nausea, vomiting. denies: diarrhea Genitourinary: denies: urgency, dysuria, discharge Musculoskeletal: back pain (Mid posterior thoracic pain). denies: joint swelling, arthralgia Skin: denies: rash, lesions Neurological: denies: headache, weakness, paresthesias Psychiatric: denies: anxiety, depression Hematological/Lymphatic: denies: easy bleeding, easy bruising ED Past Medical Hx - Past Medical History Previous Medical History?: No Hx Hypertension: No Hx Heart Attack/AMI: No Hx Diabetes: No Hx Deep Vein Thrombosis: No Hx Liver Disease: No Hx Renal Disease: No Hx Sickle Cell Disease: No Hx Seizures: No Hx Asthma: No Hx COPD: No Hx HIV: No Additional medical history: Peptic ulcer disease, SBO - Surgical History Past Surgical History?: Yes Hx Pacemaker: No Hx Internal Defibrillator: No Hx Cholecystectomy: Yes Additional Surgical History: Lumpectomy-benign, gastric sleeve - Social History Smoking Status: Never Smoker Substance Use Type: None - Medications Home Medications: Home Medications Medication Instructions Recorded Confirmed Last Taken Type Melatonin 2 cap PO HS PRN 10/17/19 10/31/19 10/30/19 History Vitamin 1 tab PO DAILY 10/17/19 10/31/19 10/30/19 History Ciprofloxacin HCl 250 mg PO BID #14 tablet 11/04/19 Unknown Rx Docusate Sodium [Colace] 100 mg PO BID PRN #60 capsule 11/04/19 Unknown Rx Ferrous Sulfate [Feosol 325 MG tab] 325 mg PO BID #60 tablet 11/04/19 Unknown Rx Ibuprofen [Motrin] 600 mg PO Q6H PRN #30 tablet 11/04/19 Unknown Rx oxyCODONE /ACETAMINOPHEN [Percocet 1 tab PO Q6HR PRN #40 tablet 11/04/19 Unknown Rx 5/325] Ibuprofen [Motrin] 800 mg PO Q8HR PRN #30 tablet 07/11/20 Unknown Rx Ondansetron [Zofran Odt] 4 mg PO Q8HR PRN #15 tab.rapdis 07/11/20 Unknown Rx Sulfamethoxazole/Trimethoprim 1 each PO Q12H #20 tablet 07/11/20 Unknown Rx [Bactrim DS TAB] ED Physical Exam - General Limitations: No Limitations General appearance: alert, in no apparent distress - Head Head exam: Present: atraumatic, normocephalic, normal inspection - Eye Eye exam: Present: normal appearance, PERRL, EOMI Pupils: Present: normal accommodation - ENT ENT exam: Present: normal exam, normal orophraynx, mucous membranes moist, TM's normal bilaterally, normal external ear exam - Neck Neck exam: Present: normal inspection, full ROM - Respiratory Respiratory exam: Present: normal lung sounds bilaterally. Absent: respiratory distress, wheezes, rales, rhonchi, chest wall tenderness, accessory muscle use, decreased breath sounds - Cardiovascular Cardiovascular Exam: Present: regular rate, normal rhythm, normal heart sounds. Absent: systolic murmur, diastolic murmur, rubs, gallop - GI/Abdominal GI/Abdominal exam: Present: soft, tenderness (Palpable severe epigastric tenderness with guarding), guarding, normal bowel sounds. Absent: rebound, hyperactive bowel sounds, hypoactive bowel sounds, organomegaly, mass, bruit - Extremities Exam Extremities exam: Present: normal inspection, full ROM, normal capillary refill - Back Exam Back exam: Present: normal inspection, full ROM. Absent: tenderness, CVA tenderness (R), CVA tenderness (L), muscle spasm, paraspinal tenderness, vertebral tenderness - Neurological Exam Neurological exam: Present: alert, oriented X3, CN II-XII intact, normal gait, reflexes normal - Psychiatric Psychiatric exam: Present: normal affect, normal mood - Skin Skin exam: Present: warm, dry, intact, normal color. Absent: rash ED Medical Decision Making - Lab Data Result diagrams: 09/17/20 19:59 09/17/20 19:59 - Radiology Data Radiology results: report reviewed, image reviewed [facility] [address] [place] [address] Cat Scan Report Signed Patient: JANETTE VALENTE MR#: [id number] : 1985 Acct:[id number] Age/Sex: 35 / F ADM Date: 09/17/20 Loc: ED Attending Dr: Ordering Physician: DEVORAH WYATT Date of Service: 09/17/20 Procedure(s): CT abdomen pelvis w con Accession Number(s): [id number] cc: DEVORAH WYATT CT ABDOMEN AND PELVIS WITH IV CONTRAST INDICATION: Patient complains of abdominal pain with nausea and vomiting. COMPARISON: 08/22/2016 TECHNIQUE: Axial CT images were obtained through the abdomen and pelvis after 100 mL IV contrast. All CT scans at this location are performed using CT dose reduction for ALARA by means of automated exposure control. FINDINGS -- ABDOMEN: Lung Bases: No acute abnormality. Liver: Severe fatty liver. Gallbladder: Removed. Bile Ducts: Normal. Pancreas: Extensive peripancreatic stranding and inflammation.. Spleen: Normal. Adrenals: Normal. Right Kidney and Proximal Ureter: Normal. Left Kidney and Proximal Ureter: Normal. Stomach and Bowel: Normal. Lymph Nodes: No significant adenopathy. Aorta: No significant abnormality. IVC: Normal. Additional Findings: None. FINDINGS -- PELVIS: Urinary Bladder and Distal Ureters: Normal. Reproductive Organs: Hysterectomy. Appendix: Normal. Bowel: No acute abnormality. Free Fluid: Small free pelvic fluid. Lymph Nodes: No significant adenopathy. Additional Findings: None. Skeletal System: No acute abnormality. IMPRESSION: 1. Acute pancreatitis. 2. Severe fatty liver. 3. Prior cholecystectomy. 4. Small scattered intra-abdominal fluid. Signer Name: Mike Barger MD Signed: 09/18/2020 12:03 AM Workstation Name: [id number] Transcribed By: BC Dictated By: Mike Barger MD Electronically Authenticated By: Mike Barger MD Signed Date/Time: 09/18/20 0003 DD/ 0001 TD/TT: - Medical Decision Making This is a 35-year-old -Filipino female with a history of peptic ulcer disease, chronic alcohol abuse and s/p cholecystectomy and gastric sleeve surgery who presents to the ED with complaint of acute onset persistent gastric pain and intractable nausea and vomiting for over 12 hours. Patient states that she has not been able to keep anything down including fluids because of intractable nausea and vomiting and worsening epigastric pain. Patient states that the pain radiates to the mid posterior thoracic area. In the ED, patient is alert and oriented x3 and is not in any distress. Patient was treated for pain in the ED and also given antiemetics and normal saline 1 L IV bolus x1+ an tacids. Lab test results were reviewed and showed elevated total bilirubin of 1.70, elevated AST of 190, ALT of 102 and elevated lipase level 2129. Abdomen abdomen pelvis CT scan with contrast showed acute pancreatitis, severe fatty liver, prior cholecystectomy and small scattered intra-abdominal fluid. On reevaluation, patient's pain is moderately controlled, but the nausea is persistent. Patient's case was discussed with the ED attending physician Dr. Leija who advised the patient be admitted by the hospitalist physician. I therefore paged and discussed the patient's case with the hospitalist physician on-call Dr. Pollock who admitted the patient to the hospital for further evaluation . At the time of admission, patient is hemodynamically stable. - Differential Diagnosis GERD; gastroenteritis; pancreatitis; small bowel obstruction; colitis Critical Care Time: Yes Critical care time in (mins) excluding proc time.: 45 Critical care attestation.: If time is entered above; I have spent that time in minutes in the direct care of this critically ill patient, excluding procedure time. Time spent reviewing lab test results, imaging reports, patient education and reevaluation, as well as discussions with the hospitalist physician for final admission. Critical Care Time: 45 minutes spent reviewing lab test results, imaging reports, patient education and reevaluation, and discussions with the hospitalist physician for final admission. ED Disposition Clinical Impression: Intractable nausea and vomiting, Abdominal pain, acute, epigastric Acute alcoholic pancreatitis Qualifiers: Acute pancreatitis complication: unspecified Qualified Code(s): K85.20 - Alcohol induced acute pancreatitis without necrosis or infection Disposition: 09 OP ADMIT IP TO THIS HOSP Is pt being admited?: Yes Does the pt Need Aspirin: Yes Condition: Stable Instructions: Nausea and Vomiting, Adult, [id number], Abdominal Pain, Adult, [id number] Time of Disposition: 00:40 Print Language: BURMESE
[2020-09-18] MEDS ORDERED: SODIUM CHLORIDE 0.9% 1000 ML 1,000 ML IV ONE (00:43)
[2020-09-18] MEDS ORDERED: ACETAMINOPHEN 325 MG TAB PO PRN ×2 (00:43→01:15)
[2020-09-18] MEDS ORDERED: HYDROmorphone 1 MG/1 ML INJ IM ONE (00:47)
--- NOTE | 2020-09-18 01:09 | History and Physical Report ---
History of Present Illness Date of examination: 09/18/20 Date of admission: 09/18/20 Chief complaint: epigastric pain Acute pancreatitis History of present illness: Patient is a 35-year-old -H[place] female with a history of peptic ulcer disease, chronic alcohol abuse and s/p cholecystectomy and gastric sleeve surgery who presents to the ED with complaint of acute onset persistent gastric pain and intractable nausea and vomiting for over 12 hours. Patient states that she has not been able to keep anything down including fluids because of intractable nausea and vomiting and worsening epigastric pain. Patient states that the pain radiates to the mid posterior thoracic area. Patient denies hematemesis, chest pain, shortness of breath, dizziness, syncope, diarrhea, fever, chills, cough, headache, dysuria, urinary frequency and urgency, vaginal bleeding, vaginal discharge, constipation or hematuria. ED work-up shows WBC 7.2 hemoglobin 15.6, platelet is 190, potassium 3.7, sodium 139, creatinine 0.6, AST 190, ALT 102, total bilirubin 1.7, lipase 2129. CT of the abdomen with pelvics done showed same acute pancreatitis, severe fatty liver, absence of gallbladder. Patient has history of gallbladder removal. Will start patient on IV hydration and pain management. Patient seen at the bedside alert oriented x3. Patient complaining of abdominal pain and she admits tobacco use. Education and counseling to quit alcohol and tobacco use. Patient voiced understanding Past History Past Medical History: other (pancreatitis, SBO,) Past Surgical History: cholecystectomy Social history: lives with family, smoking Family history: no significant family history Medications and Allergies Allergies Allergy/AdvReac Type Severity Reaction Status Date / Time No Known Allergies Allergy Verified 05/11/16 07:35 Home Medications Medication Instructions Recorded Confirmed Last Taken Type Melatonin 2 cap PO HS PRN 10/17/19 10/31/19 10/30/19 History Vitamin 1 tab PO DAILY 10/17/19 10/31/19 10/30/19 History Ciprofloxacin HCl 250 mg PO BID #14 tablet 11/04/19 Unknown Rx Docusate Sodium [Colace] 100 mg PO BID PRN #60 capsule 11/04/19 Unknown Rx Ferrous Sulfate [Feosol 325 MG tab] 325 mg PO BID #60 tablet 11/04/19 Unknown Rx Ibuprofen [Motrin] 600 mg PO Q6H PRN #30 tablet 11/04/19 Unknown Rx oxyCODONE /ACETAMINOPHEN [Percocet 1 tab PO Q6HR PRN #40 tablet 11/04/19 Unknown Rx 5/325] Ibuprofen [Motrin] 800 mg PO Q8HR PRN #30 tablet 07/11/20 Unknown Rx Ondansetron [Zofran Odt] 4 mg PO Q8HR PRN #15 tab.rapdis 07/11/20 Unknown Rx Sulfamethoxazole/Trimethoprim 1 each PO Q12H #20 tablet 07/11/20 Unknown Rx [Bactrim DS TAB] Active Meds: Active Medications Acetaminophen (Acetaminophen 325 Mg Tab) 650 mg PO Q4H PRN PRN Reason: Pain MILD(1-3)/Fever >100.5/QUESADA Sodium Chloride (Nacl 0.9% 1000 Ml) 1,000 mls @ 125 mls/hr IV ONCE ONE Stop: 09/18/20 08:42 Ondansetron HCl (Ondansetron 4 Mg/2 Ml Inj) 4 mg IV Q8H PRN PRN Reason: Nausea And Vomiting Sodium Chloride (Sodium Chloride 0.9% 10 Ml Flush Syringe) 10 ml IV BID BOB Sodium Chloride (Sodium Chloride 0.9% 10 Ml Flush Syringe) 10 ml IV PRN PRN PRN Reason: LINE FLUSH Review of Systems Constitutional: malaise Ears, nose, mouth and throat: no epistaxis, no bleeding gums Gastrointestinal: abdominal pain, nausea, vomiting, heartburn, indigestion, no melena Genitourinary Female: no hematuria Rectal: no hemorrhoids Integumentary: no rash, no pruritis Neurological: no head injury Psychiatric: anxiety Hematologic/Lymphatic: no easy bruising, no easy bleeding Allergic/Immunologic: no urticaria Exam - Constitutional Vitals: Temp Pulse Resp BP Pulse Ox 98.8 F 96 H 18 137/102 97 09/17/20 19:48 09/17/20 19:48 09/17/20 19:48 09/17/20 19:48 09/17/20 19:48 General appearance: Present: mild distress, well-nourished - EENT Eyes: Present: PERRL ENT: hearing intact, clear oral mucosa - Neck Neck: Present: supple, normal ROM - Respiratory Respiratory effort: normal Respiratory: bilateral: CTA - Cardiovascular Heart Sounds: Present: S1 & S2. Absent: rub, click - Extremities Extremities: pulses symmetrical, No edema Peripheral Pulses: within normal limits - Abdominal General gastrointestinal: Present: soft, non-tender, non-distended, normal bowel sounds Localized gastrointestinal: tender: RUQ, LUQ, epigastric periumbilical, guarding: RUQ, LUQ, epigastric periumbilical Female genitourinary: Present: normal - Integumentary Integumentary: Present: clear, warm, dry - Musculoskeletal Musculoskeletal: gait normal, strength equal bilaterally - Psychiatric Psychiatric: appropriate mood/affect, intact judgment & insight, cooperative - Neurologic Neurologic: CNII-XII intact, moves all extremities - Allied Health Allied health notes reviewed: nursing Results - Labs CBC & Chem 7: 09/17/20 19:59 09/17/20 19:59 Labs: Abnormal lab results 09/17/20 09/17/20 09/17/20 Range/Units 19:58 19:59 19:59 Hgb 15.6 H (10.1-14.3) gm/dl Hct 43.7 H (30.3-42.9) % MCV 103 H (79-97) fl MCH 37 H (28-32) pg MCHC 36 H (30-34) % Lymph % (Auto) 11.9 L (13.4-35.0) % [place] % (Auto) 8.4 H (0.0-7.3) % Lymph # (Auto) 0.9 L (1.2-5.4) K/mm3 Seg Neutrophils % 79.3 H (40.0-70.0) % Chloride 97.5 L (98-107) mmol/L Glucose 184 H (65-100) mg/dL Total Bilirubin 1.70 H (0.1-1.2) mg/dL AST 190 H (5-40) units/L ALT 102 H (7-56) units/L Lipase 2129 H (13-60) units/L Assessment and Plan - Patient Problems (1) Acute alcoholic pancreatitis Current Visit: Yes Status: Acute Qualifiers: Acute pancreatitis complication: unspecified Qualified Code(s): K85.20 - Alcohol induced acute pancreatitis without necrosis or infection Plan to address problem: Elevated lipase secondary to acute pancreatitis Continue IV hydration and pain management CT of the abdomen done and it showed acute pancreatitis and fatty liver. Education and counseling completed to quit alcohol use Patient voiced understanding (2) Abdominal pain, acute, epigastric Current Visit: Yes Status: Acute Plan to address problem: Continue pain management (3) Tobacco use Current Visit: Yes Status: Acute Plan to address problem: Discussed tobacco use cessation Cardiovascular and neoplasm syndrome of tobacco use explained to patient (4) Intractable nausea and vomiting Current Visit: Yes Status: Acute Plan to address problem: Continue antiemetic (5) Full code status Current Visit: Yes Status: Acute Plan to address problem: Patient is full (6) DVT prophylaxis Current Visit: Yes Status: Acute Plan to address problem: SCD
[2020-09-18] MEDS ORDERED: ONDANSETRON 4 MG/2 ML INJ IV PRN (01:15)
[2020-09-18] MEDS ORDERED: METOCLOPRAMIDE 10 MG/2 ML INJ IV PRN (01:15)
[2020-09-18] MEDS ORDERED: ALUM-MAG HYDROXIDE-SIMETHICONE 200-200-20MG/5ML ORAL LIQD 30 ML PO PRN (01:15)
[2020-09-18 02:04] LABS: Bilirubin,Urine NEG (Negative); Blood,Urine SM (Negative); Color,Urine Yellow (Yellow); Mucus,Urine FEW /HPF; Urobilinogen,Urine < 2.0 mg/dL (<2.0)
[2020-09-18] MEDS: SODIUM CHLORIDE 0.9% 1000 ML 1,000 ML IV SCH ×3 (04:45→23:49)
[2020-09-18] MEDS: MORPHINE 2 MG/1 ML INJ IV PRN ×5 (04:53→22:59)
[2020-09-18] MEDS ORDERED: FAMOTIDINE 20 MG/2 ML INJ IV SCH (10:00)
--- NOTE | 2020-09-18 12:44 | Event Note ---
Date: 09/18/20 Patient seen and examined There is a second IMS visit of the day Patient had a complete physical earlier this morning Patient is alert and oriented Complains of abdominal pain, requesting increase in the morphine dose Lab results reviewed CT of the abdomen and pelvis results reviewed Continue IV fluids N.p.o. Monitor labs
[2020-09-18] MEDS: ONDANSETRON 4 MG/2 ML INJ IV PRN (19:09)
[2020-09-18] MEDS: FAMOTIDINE 20 MG/2 ML INJ IV SCH (21:50)
[2020-09-19] MEDS: MORPHINE 2 MG/1 ML INJ IV PRN ×6 (03:07→23:39)
[2020-09-19] MEDS: ONDANSETRON 4 MG/2 ML INJ IV PRN (03:08)
[2020-09-19] MEDS: FAMOTIDINE 20 MG/2 ML INJ IV SCH ×2 (09:56→21:46)
[2020-09-19] MEDS: SODIUM CHLORIDE 0.9% 1000 ML 1,000 ML IV SCH ×2 (09:57→19:32)
[2020-09-19 09:58] LABS: Basophils % (Auto) 0.4 % (0.0-1.8); Eosinophils % (Auto) 0.3 % (0.0-4.3); Hematocrit 36.7 % (30.3-42.9); Hemoglobin 12.7 gm/dl (10.1-14.3); Lymphocytes # (Auto) 1.2 K/mm3 (1.2-5.4); Lymphocytes % (Auto) 13.5 % (13.4-35.0); Mean Corpuscular HGB Conc 35 % (30-34); Mean Corpuscular Volume 105 fl (79-97); Monocytes % (Auto) 10.9 % (0.0-7.3); Platelet Count 106 K/mm3 (140-440); Red Blood Count 3.49 M/mm3 (3.65-5.03); Red Cell Distribution Width 15.2 % (13.2-15.2)
[2020-09-19 10:21] LABS: Alanine Aminotransferase 59 units/L (7-56); Albumin 3.4 g/dL (3.9-5); BUN/Creatinine Ratio 12; Blood Urea Nitrogen 6 mg/dL (7-17); Calcium 6.9 mg/dL (8.4-10.2); Hemolysis Index 6
--- NOTE | 2020-09-19 13:55 | Progress Note ---
Subjective Date of service: 09/19/20 Interval history: Patient is a 35-year-old -[place] female with a history of peptic ulcer disease, chronic alcohol abuse and s/p cholecystectomy and gastric sleeve surgery who presents to the ED with complaint of acute onset persistent gastric pain and intractable nausea and vomiting for over 12 hours. Patient states that she has not been able to keep anything down including fluids because of intractable nausea and vomiting and worsening epigastric pain. Patient states that the pain radiates to the mid posterior thoracic area. Patient denies hematemesis, chest pain, shortness of breath, dizziness, syncope, diarrhea, fever, chills, cough, headache, dysuria, urinary frequency and urgency, vaginal bleeding, vaginal discharge, constipation or hematuria. ED work-up shows WBC 7.2 hemoglobin 15.6, platelet is 190, potassium 3.7, sodium 139, creatinine 0.6, AST 190, ALT 102, total bilirubin 1.7, lipase 2129. CT of the abdomen with pelvics done showed same acute pancreatitis, severe fatty liver, absence of gallbladder. Patient has history of gallbladder removal. Will start patient on IV hydration and pain management. Patient seen at the bedside alert oriented x3. Patient complaining of abdominal pain and she admits tobacco use. Education and counseling to quit alcohol and tobacco use. Patient voiced understanding / patient is alert and oriented and feels a whole lot better this morning. States pain has significantly improved and rates around 4/10 in the pain scale Lab results reviewed. She denies any nausea or vomiting or diarrhea. Assessment and plan Acute pancreatitis-likely alcohol induced Improving well Started on clear liquids this morning and will advance to full liquids Serum lipase dropped to 250 CT of the abdomen pelvis results reviewed Pain control as needed Thrombocytopenia ? Alcohol induced Patient is not on heparin for DVT prophylaxis Platelets dropped from 1 90-1 06 this morning Monitor platelets History of peptic ulcer disease Continue PPI History of chronic alcoholic abuse Alcohol cessation counseling was done Patient is not in withdrawal Objective - Constitutional Vitals: Vital Signs - 12hr 09/19/20 09/19/20 04:30 07:03 Temperature 98.8 F 98.8 F Pulse Rate 89 83 Respiratory 18 16 Rate Blood Pressure 134/92 133/93 O2 Sat by Pulse 95 95 Oximetry General appearance: Present: no acute distress, well-nourished - EENT Eyes: PERRL, EOM intact ENT: hearing intact, clear oral mucosa - Neck Neck: supple, normal ROM - Respiratory Respiratory effort: normal Respiratory: bilateral: CTA - Cardiovascular Rhythm: regular Heart Sounds: Present: S1 & S2 Extremities: No edema - Gastrointestinal General gastrointestinal: Present: soft, non-tender Rectal Exam: deferred - Genitourinary Female genitourinary: deferred - Integumentary Integumentary: clear - Musculoskeletal Musculoskeletal: strength equal bilaterally - Neurologic Neurologic: no focal deficits - Psychiatric Psychiatric: appropriate mood/affect - Labs CBC & Chem 7: 09/19/20 09:41 09/19/20 09:41 Labs: Abnormal lab results 09/19/20 09/19/20 09/19/20 Range/Units 09:41 09:41 09:41 RBC 3.49 L (3.65-5.03) M/mm3 MCV 105 H (79-97) fl MCH 36 H (28-32) pg MCHC 35 H (30-34) % Plt Count 106 L (140-440) K/mm3 [place] % (Auto) 10.9 H (0.0-7.3) % [place] # (Auto) 1.0 H (0.0-0.8) K/mm3 Seg Neutrophils % 74.9 H (40.0-70.0) % BUN 6 L (7-17) mg/dL Creatinine 0.5 L (0.6-1.2) mg/dL Glucose 56 L (65-100) mg/dL Calcium 6.9 L D (8.4-10.2) mg/dL AST 150 H (5-40) units/L ALT 59 H (7-56) units/L Total Protein 6.0 L D (6.3-8.2) g/dL Albumin 3.4 L (3.9-5) g/dL Lipase 253 H (13-60) units/L
[2020-09-19] MEDS ORDERED: THIAMINE 100 MG TAB PO SCH (14:00)
[2020-09-19] MEDS: FOLIC ACID 1 MG TAB PO SCH (15:58)
[2020-09-20] MEDS: MORPHINE 2 MG/1 ML INJ IV PRN ×2 (03:52→09:00)
[2020-09-20] MEDS: SODIUM CHLORIDE 0.9% 1000 ML 1,000 ML IV SCH (03:56)
[2020-09-20 04:48] LABS: Hematocrit 35.5 % (30.3-42.9); Hemoglobin 12.5 gm/dl (10.1-14.3); Mean Corpuscular HGB Conc 35 % (30-34); Mean Corpuscular Volume 104 fl (79-97); Platelet Count 108 K/mm3 (140-440); Red Cell Distribution Width 14.5 % (13.2-15.2)
[2020-09-20 05:10] LABS: Alanine Aminotransferase 49 units/L (7-56); Albumin 3.2 g/dL (3.9-5); Blood Urea Nitrogen 3 mg/dL (7-17); Calcium 6.8 mg/dL (8.4-10.2); Hemolysis Index 4
[2020-09-20 05:41] LABS: BUN/Creatinine Ratio 6
[2020-09-20] MEDS: POTASSIUM CHLORIDE 10 MEQ 10 MEQ/100 ML BAG IV SCH ×2 (06:00→07:03)
[2020-09-20] MEDS ORDERED: POTASSIUM CHLORIDE ER 20 MEQ TAB PO ONE (07:52)
[2020-09-20 07:53] VITALS: BP 137/92
[2020-09-20] MEDS: FAMOTIDINE 20 MG/2 ML INJ IV SCH (09:00)
[2020-09-20] MEDS: FOLIC ACID 1 MG TAB PO SCH (09:01)
--- NOTE | 2020-09-20 10:45 | Discharge Summary ---
Providers - Providers Date of Admission: 09/18/20 00:44 Date of discharge: 09/20/20 Attending physician: MER BUCKNER [facility] Condition: Stable Pertinent studies: CT of the abdomen and pelvis Hospital course: Patient is a 35-year-old -[place] female with a history of peptic ulcer disease, chronic alcohol abuse and s/p cholecystectomy and gastric sleeve surgery who presents to the ED with complaint of acute onset persistent gastric pain and intractable nausea and vomiting for over 12 hours. Patient states that she has not been able to keep anything down including fluids because of intractable nausea and vomiting and worsening epigastric pain. Patient states that the pain radiates to the mid posterior thoracic area. Patient denies hematemesis, chest pain, shortness of breath, dizziness, syncope, diarrhea, fever, chills, cough, headache, dysuria, urinary frequency and urgency, vaginal bleeding, vaginal discharge, constipation or hematuria. ED work-up shows WBC 7.2 hemoglobin 15.6, platelet is 190, potassium 3.7, sodium 139, creatinine 0.6, AST 190, ALT 102, total bilirubin 1.7, lipase 2129. CT of the abdomen with pelvics done showed same acute pancreatitis, severe fatty liver, absence of gallbladder. Patient has history of gallbladder removal. Will start patient on IV hydration and pain management. Patient seen at the bedside alert oriented x3. Patient complaining of abdominal pain and she admits tobacco use. Education and counseling to quit alcohol and tobacco use. Patient voiced understanding /2 patient is alert and oriented and feels a whole lot better this morning. States pain has significantly improved and rates around 4/10 in the pain scale Lab results reviewed. She denies any nausea or vomiting or diarrhea. 7/3 patient is doing well, tolerating advance diet, no complaints, she has a low-grade temp of 99.2 otherwise feels just fine She is medically stable for discharge. Assessment and plan Acute pancreatitis-likely alcohol induced Improving well diet advanced to soft and tolerating well Serum lipase dropped to 250 CT of the abdomen pelvis results reviewed Will give a 5-day course of empiric antibiotic as the patient has a low-grade temp of 99.2 Transaminitis Likely secondary to alcoholic hepatitis Steadily improving ALT normalized AST is down to 106 Thrombocytopenia ? Alcohol induced Patient is not on heparin for DVT prophylaxis Platelets dropped from 190-106 > 108 this morning Macrocytosis Likely EtOH induced She is not anemic History of peptic ulcer disease Continue PPI History of chronic alcoho abuse Alcohol cessation counseling was done Patient is not in withdrawal Disposition: DC-01 TO HOME OR SELFCARE Final Discharge Diagnosis (Prints w/discharge instructions): Acute pancreatitis Time spent for discharge: 38 minutes Core Measure Documentation - Palliative Care Palliative Care/ Comfort Measures: Not Applicable - Core Measures Any of the following diagnoses?: none Exam - Constitutional Vitals: Temp Pulse Resp BP Pulse Ox 99.2 F 85 18 137/92 98 09/20/20 07:14 09/20/20 07:14 09/20/20 07:14 09/20/20 07:14 09/20/20 07:14 General appearance: Present: no acute distress, well-nourished - EENT Eyes: Present: PERRL, EOM intact ENT: hearing intact, clear oral mucosa - Neck Neck: Present: supple, normal ROM - Respiratory Respiratory effort: normal Respiratory: bilateral: CTA - Cardiovascular Rhythm: regular Heart Sounds: Present: S1 & S2 - Extremities Extremities: No edema - Abdominal General gastrointestinal: Present: soft Female genitourinary: Present: deferred - Rectal Rectal Exam: deferred - Integumentary Integumentary: Present: clear - Musculoskeletal Musculoskeletal: strength equal bilaterally - Psychiatric Psychiatric: appropriate mood/affect - Neurologic Neurologic: no focal deficits Plan Activity: advance as tolerated Weight Bearing Status: Full Weight Bearing Diet: low fat, low cholesterol (Soft diet) Follow up with: ASHLEY PEDRAZA MD [Primary Care Provider] - 7 Days Prescriptions: levoFLOXacin [Levaquin TAB] 500 mg PO QDAY #5 tablet HYDROcodone/APAP 5-325 [[place] 5/325] 1 each PO Q6HR PRN #14 tablet PRN Reason: Pain Famotidine [Pepcid] 20 mg PO BID #60 tablet
[2020-09-20] MEDS ORDERED: FAMOTIDINE 20 MG TAB PO SCH (22:00)
== END 2020-09-20 16:20 | disposition home or self-care (01) | DRG 440 ==
LOC: ED 18:16 → 3B-SURG 09-18 00:44
PROVIDERS: ADMIT Hospitalist; ATTEND Internal Medicine
DX: K85.20 Alcohol induced acute pancreatitis without necrosis or infection (principal); D75.89 Other specified diseases of blood and blood-forming organs; K70.10 Alcoholic hepatitis without ascites; R74.01 Elevation of levels of liver transaminase levels; D69.6 Thrombocytopenia, unspecified; F10.10 Alcohol abuse, uncomplicated; F17.200 Nicotine dependence, unspecified, uncomplicated; Z90.49 Acquired absence of other specified parts of digestive tract; Z87.11 Personal history of peptic ulcer disease
CPT/HCPCS: 36415; 74177; 80053; 81001; 83036; 83690; 84703; 85025; 85027; 87641; 96374; 96375; 99406; G0378; J1170; J2270; J2405; J3480; J7030; Q9967

== ENCOUNTER 2020-12-28 16:06 | Observation (INO) | payer MEDICAID ==
[2020-12-28 16:41] LABS: Bilirubin,Urine NEG (Negative); Blood,Urine NEG (Negative); Color,Urine Yellow (Yellow); Mucus,Urine 2+ /HPF; Urobilinogen,Urine < 2.0 mg/dL (<2.0)
[2020-12-28] MEDS ORDERED: HYDROmorphone 1 MG/1 ML INJ IV ONE (16:54)
[2020-12-28] MEDS ORDERED: METOCLOPRAMIDE 10 MG/2 ML INJ IV ONE ×2 (16:54→20:26)
--- NOTE | 2020-12-28 16:56 | Emergency Department Report ---
ED General Adult HPI - General Chief complaint: Abdominal Pain Stated complaint: 16 WKS PREG/ ABD PAIN/VOMITTING PUI?: No Time Seen by Provider: 12/28/20 16:35 Source: patient, RN notes reviewed, old records reviewed Mode of arrival: Ambulatory Limitations: Physical Limitation - History of Present Illness Initial comments: The patient was evaluated in the emergency department for symptoms described in the history of present illness. He/she was evaluated in the context of the global COVID-19 pandemic, which necessitated consideration that the patient might be at risk for infection with the virus that causes COVID-19. Inst itutional protocols and algorithms that pertain to the evaluation of patients at risk for COVID-19 are in a state of rapid change based on information released by regulatory bodies including the CDC and federal and state organizations. These policies and algorithms were followed during the patient's care in the emergency department. Please note that these policies, procedures and recommendations changed on a rapid basis. The patient is a 35-year-old female. She is 4, para 3, and reports that she is approximately 16 weeks . Her [facility] [employer] physician is Dr. Gladis Samayoa. Her past medical history includes distant history of cholecystectomy, gastric sleeve in 2017, she reports anxiety and depression, and reports she is currently maintained on Zoloft and Seroquel. She reports that she was cleared by bariatric surgeon for , a few years ago. She was admitted to this hospital a few months ago for pancreatitis. She states that she does not smoke or consume marijuana, but she reports that people around her smoking consume marijuana. The patient presents to the ER today with a complaint of primarily epigastric abdominal pain, with nausea and vomiting. She is actively vomiting, has not had any unintentional weight loss. She denies right lower quadrant pain, fever and dysuria. She denies headache, neck pain, chest pain, shortness of breath and Covid symptomatology. She has had 2 bowel movements today. She denies sick contacts. Her symptoms are intermittent, pain is sharp and throbbing, increases with palpation and decreases with rest. -: Gradual, hour(s) Location: abdomen Quality: aching Consistency: intermittent Improves with: rest Worsens with: eating, movement - Related Data Home Medications Medication Instructions Recorded Confirmed Last Taken Melatonin 1 cap PO HS PRN 10/17/19 09/18/20 09/16/20 Vitamin 1 tab PO DAILY 10/17/19 09/18/20 09/16/20 Previous Rx's Medication Instructions Recorded Last Taken Type Ciprofloxacin HCl 250 mg PO BID #14 tablet 11/04/19 Unknown Rx Docusate Sodium [Colace] 100 mg PO BID PRN #60 capsule 11/04/19 Unknown Rx Ferrous Sulfate [Feosol 325 MG tab] 325 mg PO BID #60 tablet 11/04/19 Unknown Rx Ibuprofen [Motrin] 600 mg PO Q6H PRN #30 tablet 11/04/19 Unknown Rx oxyCODONE /ACETAMINOPHEN [Percocet 1 tab PO Q6HR PRN #40 tablet 11/04/19 Unknown Rx 5/325] Ibuprofen [Motrin] 800 mg PO Q8HR PRN #30 tablet 07/11/20 09/14/20 Rx Ondansetron [Zofran Odt] 4 mg PO Q8HR PRN #15 tab.rapdis 07/11/20 Unknown Rx Sulfamethoxazole/Trimethoprim 1 each PO Q12H #20 tablet 07/11/20 Unknown Rx [Bactrim DS TAB] Famotidine [Pepcid] 20 mg PO BID #60 tablet 09/20/20 Unknown Rx HYDROcodone/APAP 5-325 [[place] 1 each PO Q6HR PRN #14 tablet 09/20/20 Unknown Rx 5/325] levoFLOXacin [Levaquin TAB] 500 mg PO QDAY #5 tablet 09/20/20 Unknown Rx Allergies Allergy/AdvReac Type Severity Reaction Status Date / Time No Known Allergies Allergy Verified 05/11/16 07:35 ED Review of Systems ROS: Stated complaint: 16 WKS PREG/ ABD PAIN/VOMITTING Other details as noted in HPI Constitutional: malaise, weakness Eyes: denies: eye discharge ENT: denies: epistaxis Respiratory: denies: cough Cardiovascular: denies: chest pain Gastrointestinal: abdominal pain, nausea. denies: diarrhea Genitourinary: denies: dysuria Musculoskeletal: myalgia Neurological: weakness Psychiatric: anxiety ED Past Medical Hx - Past Medical History Hx Hypertension: No Hx Heart Attack/AMI: No Hx Congestive Heart Failure: No Hx Diabetes: No Hx Deep Vein Thrombosis: No Hx Liver Disease: No Hx Renal Disease: No Hx Sickle Cell Disease: No Hx Seizures: No Hx Asthma: No Hx COPD: No Hx HIV: No Additional medical history: Peptic ulcer disease, SBO - Surgical History Hx Pacemaker: No Hx Internal Defibrillator: No Hx Cholecystectomy: Yes Additional Surgical History: Lumpectomy-benign, gastric sleeve - Social History Smoking Status: Current Every Day Smoker - Medications Home Medications: Home Medications Medication Instructions Recorded Confirmed Last Taken Type Melatonin 1 cap PO HS PRN 10/17/19 09/18/20 09/16/20 History Vitamin 1 tab PO DAILY 10/17/19 09/18/20 09/16/20 History Ciprofloxacin HCl 250 mg PO BID #14 tablet 11/04/19 09/18/20 Unknown Rx Docusate Sodium [Colace] 100 mg PO BID PRN #60 capsule 11/04/19 09/18/20 Unknown Rx Ferrous Sulfate [Feosol 325 MG tab] 325 mg PO BID #60 tablet 11/04/19 09/18/20 Unknown Rx Ibuprofen [Motrin] 600 mg PO Q6H PRN #30 tablet 11/04/19 09/18/20 Unknown Rx oxyCODONE /ACETAMINOPHEN [Percocet 1 tab PO Q6HR PRN #40 tablet 11/04/19 09/18/20 Unknown Rx 5/325] Ibuprofen [Motrin] 800 mg PO Q8HR PRN #30 tablet 07/11/20 09/18/20 09/14/20 Rx Ondansetron [Zofran Odt] 4 mg PO Q8HR PRN #15 tab.rapdis 07/11/20 09/18/20 Unkn own Rx Sulfamethoxazole/Trimethoprim 1 each PO Q12H #20 tablet 07/11/20 Unknown Rx [Bactrim DS TAB] Famotidine [Pepcid] 20 mg PO BID #60 tablet 09/20/20 Unknown Rx HYDROcodone/APAP 5-325 [[place] 1 each PO Q6HR PRN #14 tablet 09/20/20 Unknown Rx 5/325] levoFLOXacin [Levaquin TAB] 500 mg PO QDAY #5 tablet 09/20/20 Unknown Rx ED Physical Exam - General Limitations: Physical Limitation General appearance: alert, anxious, in distress, obese - Head Head exam: Present: atraumatic, normocephalic - Eye Eye exam: Present: normal appearance, EOMI. Absent: nystagmus - ENT ENT exam: Present: normal exam, normal orophraynx, mucous membranes moist, normal external ear exam - Neck Neck exam: Present: normal inspection, full ROM. Absent: tenderness, meningismus - Respiratory Respiratory exam: Present: normal lung sounds bilaterally. Absent: respiratory distress, wheezes, rales, rhonchi, stridor, decreased breath sounds - Cardiovascular Cardiovascular Exam: Present: regular rate, normal rhythm, normal heart sounds. Absent: bradycardia, tachycardia, irregular rhythm, systolic murmur, diastolic murmur, rubs, gallop - GI/Abdominal GI/Abdominal exam: Present: soft, tenderness, other (There is mild diffuse abd ominal tenderness. There is no right lower quadrant tenderness. There is a negative Rovsing sign. There is epigastric abdominal tenderness. Uterus is nontender.). Absent: distended, guarding, rebound, rigid, pulsatile mass - Extremities Exam Extremities exam: Present: normal inspection, full ROM, normal capillary refill, other (2+ pulses noted in the bilateral upper and lower extremities. There is no palpable cord. negative Homans sign. Muscular compartments are soft. The pelvis is stable.). Absent: tenderness, pedal edema, joint swelling, calf tenderness - Back Exam Back exam: Present: normal inspection, full ROM. Absent: tenderness, CVA tenderness (R), CVA tenderness (L), paraspinal tenderness, vertebral tenderness - Neurological Exam Neurological exam: Present: alert, oriented X3, normal gait, other (No facial droop. Tongue midline. Extraocular movements intact bilaterally. Facial sensation intact to light touch in V1, V2, V3 distribution bilaterally. 5 and a 5 strength in 4 extremities. Sensation intact to light touch in 4 extremities.). Absent: motor sensory deficit - Psychiatric Psychiatric exam: Present: anxious - Skin Skin exam: Present: warm, dry, intact, normal color. Absent: rash ED Course Vital Signs 12/28/20 12/28/20 12/28/20 16:19 16:21 18:10 Temperature 68.2 F L Pulse Rate 64 Respiratory 20 18 Rate Blood Pressure 135/86 Blood Pressure [Left] O2 Sat by Pulse 92 Oximetry 12/28/20 12/28/20 12/28/20 19:29 19:31 19:45 Temperature Pulse Rate 82 69 Respiratory 15 15 12 Rate Blood Pressure 174/152 100/39 Blood Pressure [Left] O2 Sat by Pulse 100 97 100 Oximetry 12/28/20 12/28/20 12/28/20 20:01 20:08 20:15 Temperature 98.5 F Pulse Rate 75 81 76 Respiratory 28 H 22 17 Rate Blood Pressure 100/39 128/92 Blood Pressure 128/92 [Left] O2 Sat by Pulse 98 100 100 Oximetry 12/28/20 12/28/20 12/28/20 20:31 20:45 21:01 Temperature Pulse Rate Respiratory 23 Rate Blood Pressure 128/92 133/84 133/84 Blood Pressure [Left] O2 Sat by Pulse 100 100 100 Oximetry 12/28/20 12/28/20 12/28/20 21:15 21:31 21:45 Temperature Pulse Rate Respiratory 20 22 17 Rate Blood Pressure 122/81 122/81 105/69 Blood Pressure [Left] O2 Sat by Pulse 99 100 99 Oximetry 12/28/20 12/28/20 12/28/20 22:01 22:15 22:31 Temperature Pulse Rate Respiratory 9 L 12 23 Rate Blood Pressure 122/81 109/70 109/70 Blood Pressure [Left] O2 Sat by Pulse 100 100 100 Oximetry - Reevaluation(s) Reevaluation #1: 12/28/20 18:15 Differential diagnosis, including but not limited to: GERD, gastritis, hiatal hernia, pancreatitis, cannabinoid hyperemesis syndrome, , dehydration, hyperemesis Assessment and plan: 35-year-old female, with a soft benign abdomen, with minimal diffuse tenderness, specifically, does not have pinpoint right lower quadrant tenderness, she is defecating, with a normal lipase, normal lactic acid, lack of fever, normal liver tests, ketonuria noted on urinalysis, and evidence of metabolic acidosis and anion gap acidosis. Suspect cannabinoid hyperemesis syndrome or hyperemesis gravidarum/nausea and vomiting , or both. I think a Petersons hernia/internal hernia is very unlikely, given her physical examination, lack of fever, lack of leukocytosis, and lack of lactic acidosis. The patient initially refused having ultrasounds performed secondary to having pain. Patient be medicated aggressively, with hydromorphone, Reglan, D5 half- normal, and be admitted for antiemetics, and supportive care. Patient is agreeable to this plan of care. Contacted general surgeon on-call, Dr. Alicia Esteban. We discussed the patient's history, physical, laboratory studies, overall clinical impression, and leading diagnoses likely being cannabinoid hyperemesis syndrome and/or superimposed hyperemesis gravidarum. Dr. Esteban Agrees with the plan of care, and will follow in consultation. I contacted [facility] [employer] on-call for the patient's primary provider, Dr. Samayoa. We discussed the patient's history, physical, laboratory studies, prior imaging studies, and overall clinical impression. Patient to be admitted to mother-baby for IV hydration, antiemetics and supportive care. This is unlikely to be appendicitis given lack of right lower quadrant tenderness, rebound or guarding. This is unlikely to be obstruction as the patient is defecating and passing gas. 12/28/20 18:20 12/28/20 18:27 Patient continues to retch after Reglan. Zofran is ordered. 12/28/20 20:43 Feeling improved, although still nauseous. Have not witnessed retching. Vital signs within normal limits. EKG appreciated. Awaiting ultrasound. Have made multiple phone calls to communications technologist, they state they will come by shortly to perform the patient's ultrasound. The patient also informed me that she would like to have her ultrasound done. ED Medical Decision Making - Lab Data Result diagrams: 12/28/20 17:14 12/28/20 17:14 Vital Signs 12/28/20 12/28/20 16:19 16:21 Temperature 68.2 F L Pulse Rate 64 Respiratory 20 Rate Blood Pressure 135/86 O2 Sat by Pulse 92 Oximetry Lab Results 12/28/20 12/28/20 12/28/20 Range/Units 17:14 17:14 17:14 WBC 11.1 H (4.5-11.0) K/mm3 RBC 3.98 (3.65-5.03) M/mm3 Hgb 13.3 (10.1-14.3) gm/dl Hct 36.9 (30.3-42.9) % MCV 93 (79-97) fl MCH 33 H (28-32) pg MCHC 36 H (30-34) % RDW 13.1 L (13.2-15.2) % Plt Count 265 (140-440) K/mm3 Lymph % (Auto) 8.6 L (13.4-35.0) % [place] % (Auto) 1.7 (0.0-7.3) % Eos % (Auto) 0.1 (0.0-4.3) % Baso % (Auto) 0.4 (0.0-1.8) % Lymph # (Auto) 0.9 L (1.2-5.4) K/mm3 [place] # (Auto) 0.2 (0.0-0.8) K/mm3 Eos # (Auto) 0.0 (0.0-0.4) K/mm3 Baso # (Auto) 0.0 (0.0-0.1) K/mm3 Seg Neutrophils % 89.2 H (40.0-70.0) % Seg Neutrophils # 9.9 H (1.8-7.7) K/mm3 Sodium 138 (137-145) mmol/L Potassium 3.5 L (3.6-5.0) mmol/L Chloride 105.8 (98-107) mmol/L Carbon Dioxide 13 L (22-30) mmol/L Anion Gap 23 mmol/L BUN 8 (7-17) mg/dL Creatinine 0.4 L (0.6-1.2) mg/dL Estimated GFR > 60 ml/min BUN/Creatinine Ratio 20 % Glucose 116 H (65-100) mg/dL Calcium 9.1 (8.4-10.2) mg/dL Magnesium 1.60 L (1.7-2.3) mg/dL Total Bilirubin 0.30 (0.1-1.2) mg/dL AST 17 (5-40) units/L ALT 10 (7-56) units/L Alkaline Phosphatase 50 (35-129) units/L Total Protein 7.8 (6.3-8.2) g/dL Albumin 3.9 (3.9-5) g/dL Albumin/Globulin Ratio 1.0 % Lipase 14 (13-60) units/L Urine Color (Yellow) Urine Turbidity (Clear) Urine pH (5.0-7.0) Ur Specific [place] (1.003-1.030) Urine Protein (Negative) mg/dL Urine Glucose (UA) (Negative) mg/dL Urine Ketones (Negative) mg/dL Urine Blood (Negative) Urine Nitrite (Negative) Urine Bilirubin (Negative) Urine Urobilinogen (<2.0) mg/dL Ur Leukocyte Esterase (Negative) Urine WBC (Auto) (0.0-6.0) /HPF Urine RBC (Auto) (0.0-6.0) /HPF U Epithel Cells (Auto) (0-13.0) /HPF Urine Mucus /HPF Urine Opiates Screen Urine Methadone Screen Ur Barbiturates Screen Ur Phencyclidine Scrn Ur Amphetamines Screen U Benzodiazepines Scrn Urine Cocaine Screen U Marijuana (THC) Screen Drugs of Abuse Note 12/28/20 12/28/20 Range/Units Unknown Unknown WBC (4.5-11.0) K/mm3 RBC (3.65-5.03) M/mm3 Hgb (10.1-14.3) gm/dl Hct (30.3-42.9) % MCV (79-97) fl MCH (28-32) pg MCHC (30-34) % RDW (13.2-15.2) % Plt Count (140-440) K/mm3 Lymph % (Auto) (13.4-35.0) % [place] % (Auto) (0.0-7.3) % Eos % (Auto) (0.0-4.3) % Baso % (Auto) (0.0-1.8) % Lymph # (Auto) (1.2-5.4) K/mm3 [place] # (Auto) (0.0-0.8) K/mm3 Eos # (Auto) (0.0-0.4) K/mm3 Baso # (Auto) (0.0-0.1) K/mm3 Seg Neutrophils % (40.0-70.0) % Seg Neutrophils # (1.8-7.7) K/mm3 Sodium (137-145) mmol/L Potassium (3.6-5.0) mmol/L Chloride (98-107) mmol/L Carbon Dioxide (22-30) mmol/L Anion Gap mmol/L BUN (7-17) mg/dL Creatinine (0.6-1.2) mg/dL Estimated GFR ml/min BUN/Creatinine Ratio % Glucose (65-100) mg/dL Calcium (8.4-10.2) mg/dL Magnesium (1.7-2.3) mg/dL Total Bilirubin (0.1-1.2) mg/dL AST (5-40) units/L ALT (7-56) units/L Alkaline Phosphatase (35-129) units/L Total Protein (6.3-8.2) g/dL Albumin (3.9-5) g/dL Albumin/Globulin Ratio % Lipase (13-60) units/L Urine Color Yellow (Yellow) Urine Turbidity Cloudy (Clear) Urine pH 6.0 (5.0-7.0) Ur Specific [place] 1.026 (1.003-1.030) Urine Protein 100 mg/dl (Negative) mg/dL Urine Glucose (UA) Neg (Negative) mg/dL Urine Ketones 80 (Negative) mg/dL Urine Blood Neg (Negative) Urine Nitrite Neg (Negative) Urine Bilirubin Neg (Negative) Urine Urobilinogen < 2.0 (<2.0) mg/dL Ur Leukocyte Esterase Mod (Negative) Urine WBC (Auto) 5.0 (0.0-6.0) /HPF Urine RBC (Auto) 7.0 (0.0-6.0) /HPF U Epithel Cells (Auto) 54.0 H (0-13.0) /HPF Urine Mucus 2+ /HPF Urine Opiates Screen Presumptive negative Urine Methadone Screen Presumptive negative Ur Barbiturates Screen Presumptive negative Ur Phencyclidine Scrn Presumptive negative Ur Amphetamines Screen Presumptive negative U Benzodiazepines Scrn Presumptive negative Urine Cocaine Screen Presumptive negative U Marijuana (THC) Screen Presumptive positive Drugs of Abuse Note Disclamer Vital Signs 12/28/20 12/28/20 12/28/20 16:19 16:21 18:10 Temperature 68.2 F L Pulse Rate 64 Respiratory 20 18 Rate Blood Pressure 135/86 Blood Pressure [Left] O2 Sat by Pulse 92 Oximetry 12/28/20 20:08 Temperature 98.5 F Pulse Rate 81 Respiratory 22 Rate Blood Pressure Blood Pressure 128/92 [Left] O2 Sat by Pulse 100 Oximetry - EKG Data -: EKG Interpreted by Ri EKG shows normal: sinus rhythm Rate: normal - EKG Data 12/28/20 20:43 EKG is interpreted at 19: 50 Sinus rhythm, rate 67 bpm. Normal axis, normal P wave axis, QTC 491 ms, poor R wave progression, and low voltage in the anteroseptal leads. This is an abnormal EKG. This is not a STEMI. - Radiology Data Radiology results: pending, report reviewed, image reviewed CT ABDOMEN AND PELVIS WITH IV CONTRAST INDICATION: Patient complains of abdominal pain with nausea and vomiting. COMPARISON: 08/22/2016 TECHNIQUE: Axial CT images were obtained through the abdomen and pelvis after 100 mL IV contrast. All CT scans at this location are performed using CT dose reduction for ALARA by means of automated exposure control. FINDINGS -- ABDOMEN: Lung Bases: No acute abnormality. Liver: Severe fatty liver. Gallbladder: Removed. Bile Ducts: Normal. Pancreas: Extensive peripancreatic stranding and inflammation.. Spleen: Normal. Adrenals: Normal. Right Kidney and Proximal Ureter: Normal. Left Kidney and Proximal Ureter: Normal. Stomach and Bowel: Normal. Lymph Nodes: No significant adenopathy. Aorta: No significant abnormality. IVC: Normal. Additional Findings: None. FINDINGS -- PELVIS: Urinary Bladder and Distal Ureters: Normal. Reproductive Organs: Hysterectomy. Appendix: Normal. Bowel: No acute abnormality. Free Fluid: Small free pelvic fluid. Lymph Nodes: No significant adenopathy. Additional Findings: None. Skeletal System: No acute abnormality. IMPRESSION: 1. Acute pancreatitis. 2. Severe fatty liver. 3. Prior cholecystectomy. 4. Small scattered intra-abdominal fluid. Signer Name: Mike Barger MD Signed: 09/17/2020 11:03 PM Workstation Name: [id number] ULTRASOUND ABDOMEN, LIMITED (RIGHT UPPER QUADRANT) INDICATION: Epigastric and right upper quadrant pain.. Patient is 13 weeks . COMPARISON: [facility] CT abdomen/pelvis 09/17/2020 FINDINGS: Pancreas: Visualized portion shows no significant abnormality. Liver: Liver is mildly echogenic suggesting hepatic steatosis. Gallbladder: Surgically absent. Bile ducts: Normal. Common Bile Duct measures 7 mm. Free fluid: None. Additional Findings: None. IMPRESSION: 1. No acute sonographic abnormality of the right upper quadrant. 2. Hepatic steatosis. Signer Name: Stacey Leija MD Signed: 12/28/2020 8:55 PM Workstation Name: [id number] ULTRASOUND OBSTETRIC INDICATION / CLINICAL INFORMATION: Diffuse abdominal cramping and pain with nausea an. Clinical Gestational Age (GA) in weeks, days: 15 weeks TECHNIQUE: Transabdominal. COMPARISON: None available. FINDINGS: GESTATIONAL SAC: Well-defined oval shape and intrauterine in location. YOLK SAC: No significant abnormality. EMBRYO/FETUS: No significant abnormality. - Colma- Rump Length = 7.15 cm = 13 weeks, 2 days - Heart Rate, beats per minute (if present) = 157 ADNEXA: No significant abnormality. Both ovaries are well- visualized and appear unremarkable. FREE FLUID: None. ADDITIONAL FINDINGS: None. IMPRESSION: 1. Single, living intrauterine with estimated sonographic age of 13 weeks, 2 days. Signer Name: Stacey Leija MD Signed: 12/28/2020 8:50 PM Workstation Name: [id number] Critical care attestation.: If time is entered above; I have spent that time in minutes in the direct care of this critically ill patient, excluding procedure time. ED Disposition Clinical Impression: Nausea and vomiting during , Metabolic acidosis, Hypomagnesemia, Dehydration, Exposure to marijuana smoke, History of bariatric surgery, History of cholecystectomy Disposition: ADMITTED INPATIENT Is pt being admited?: Yes Does the pt Need Aspirin: No Condition: Good
[2020-12-28] MEDS ORDERED: D5W/0.45% NACL 1,000 ML IV SCH (17:00)
[2020-12-28 17:10] LABS: Amphetamine Screen,Urine PRESUMPTIVE NEGATIVE; Benzodiazepines Screen,Urine PRESUMPTIVE NEGATIVE; Cannabinoid Screen,Urine PRESUMPTIVE POSITIVE; Cocaine Screen,Urine PRESUMPTIVE NEGATIVE; Methadone Screen,Urine PRESUMPTIVE NEGATIVE; Opiate Screen,Urine PRESUMPTIVE NEGATIVE
[2020-12-28 17:33] LABS: Basophils % (Auto) 0.4 % (0.0-1.8); Eosinophils % (Auto) 0.1 % (0.0-4.3); Hematocrit 36.9 % (30.3-42.9); Hemoglobin 13.3 gm/dl (10.1-14.3); Lymphocytes # (Auto) 0.9 K/mm3 (1.2-5.4); Lymphocytes % (Auto) 8.6 % (13.4-35.0); Mean Corpuscular HGB Conc 36 % (30-34); Mean Corpuscular Volume 93 fl (79-97); Monocytes # (Auto) 0.2 K/mm3 (0.0-0.8); Monocytes % (Auto) 1.7 % (0.0-7.3); Platelet Count 265 K/mm3 (140-440); Red Blood Count 3.98 M/mm3 (3.65-5.03); Red Cell Distribution Width 13.1 % (13.2-15.2)
[2020-12-28 17:58] LABS: Alanine Aminotransferase 10 units/L (7-56); Albumin 3.9 g/dL (3.9-5); BUN/Creatinine Ratio 20; Blood Urea Nitrogen 8 mg/dL (7-17); Calcium 9.1 mg/dL (8.4-10.2); Hemolysis Index 3
[2020-12-28] MEDS ORDERED: MAGNESIUM SULFATE 2 GM/50 ML BAG IV ONE (18:01)
[2020-12-28] MEDS ORDERED: ONDANSETRON 4 MG/2 ML INJ IV ONE (18:27)
[2020-12-28] MEDS ORDERED: METOCLOPRAMIDE 10 MG/2 ML INJ ONE (20:27)
--- NOTE | 2020-12-28 21:54 | Ultrasound Report ---
ULTRASOUND OBSTETRIC INDICATION / CLINICAL INFORMATION: Diffuse abdominal cramping and pain with nausea an. Clinical Gestational Age (GA) in weeks, days: 15 weeks TECHNIQUE: Transabdominal. COMPARISON: None available. FINDINGS: GESTATIONAL SAC: Well-defined oval shape and intrauterine in location. YOLK SAC: No significant abnormality. EMBRYO/FETUS: No significant abnormality. - [place]-Rump Length = 7.15 cm = 13 weeks, 2 days - Heart Rate, beats per minute (if present) = 157 ADNEXA: No significant abnormality. Both ovaries are well-visualized and appear unremarkable. FREE FLUID: None. ADDITIONAL FINDINGS: None. IMPRESSION: 1. Single, living intrauterine with estimated sonographic age of 13 weeks, 2 days. Signer Name: Stacey Leija MD Signed: 12/28/2020 9:50 PM Workstation Name: [id number]
--- NOTE | 2020-12-28 21:59 | Ultrasound Report ---
ULTRASOUND ABDOMEN, LIMITED (RIGHT UPPER QUADRANT) INDICATION: Epigastric and right upper quadrant pain.. Patient is 13 weeks . COMPARISON: [facility] CT abdomen/pelvis 09/17/2020 FINDINGS: Pancreas: Visualized portion shows no significant abnormality. Liver: Liver is mildly echogenic suggesting hepatic steatosis. Gallbladder: Surgically absent. Bile ducts: Normal. Common Bile Duct measures 7 mm. Free fluid: None. Additional Findings: None. IMPRESSION: 1. No acute sonographic abnormality of the right upper quadrant. 2. Hepatic steatosis. Signer Name: Stacey Leija MD Signed: 12/28/2020 9:55 PM Workstation Name: [id number]
[2020-12-28] MEDS ORDERED: ONDANSETRON 4 MG/2 ML INJ IV PRN (23:55)
[2020-12-29] MEDS: D5W/LACTATED RINGERS 1,000 ML IV SCH ×3 (00:30→15:57)
--- NOTE | 2020-12-29 08:04 | History and Physical Report ---
History of Present Illness Date of examination: 12/29/20 Date of admission: 12/28/20 18:24 Chief complaint: nausea, vomiting, epigastric pain History of present illness: Pt is a 35 year old ROQUE 07/[birth year] at 13w3d by ultrasound yesterday presents with acute onset of epigastric pain after ingestion of home made THC oil which reminded her of the pain she felt when she was diagnosed with pancreatitis in August 2020. She plans to initiate care later this week. She has had no nausea or vomiting prior to yesterday. She denies any vaginal bleeding, leakage of fluid or pelvic cramping. She does have a history of cholecystectomy and a history of gastric sleeve. 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: abnormal PAP smear, herpes Family/Genetic History: diabetes, hypertension, cancer Social history: no significant social history - Obstetrical History Expected Date of Delivery: 07/03/21 Actual Gestation: 13 Week(s) 3 Day(s) : 5 Para: 3 Hx # Term Pregnancies: 3 Number of Pregnancies: 0 Spontaneous Abortions: 1 Induced : 0 Number of Living Children: 3 Medications and Allergies Allergies Allergy/AdvReac Type Severity Reaction Status Date / Time No Known Allergies Allergy Verified 05/11/16 07:35 Home Medications Medication Instructions Recorded Confirmed Last Taken Type Melatonin 1 cap PO HS PRN 10/17/19 09/18/20 09/16/20 History Vitamin 1 tab PO DAILY 10/17/19 09/18/20 09/16/20 History Ciprofloxacin HCl 250 mg PO BID #14 tablet 11/04/19 09/18/20 Unknown Rx Docusate Sodium [Colace] 100 mg PO BID PRN #60 capsule 11/04/19 09/18/20 Unknown Rx Ferrous Sulfate [Feosol 325 MG tab] 325 mg PO BID #60 tablet 11/04/19 09/18/20 Unknown Rx Ibuprofen [Motrin] 600 mg PO Q6H PRN #30 tablet 11/04/19 09/18/20 Unknown Rx oxyCODONE /ACETAMINOPHEN [Percocet 1 tab PO Q6HR PRN #40 tablet 11/04/19 09/18/20 Unknown Rx 5/325] Ibuprofen [Motrin] 800 mg PO Q8HR PRN #30 tablet 07/11/20 09/18/20 09/14/20 Rx Ondansetron [Zofran Odt] 4 mg PO Q8HR PRN #15 tab.rapdis 07/11/20 09/18/20 Unknown Rx Sulfamethoxazole/Trimethoprim 1 each PO Q12H #20 tablet 07/11/20 Unknown Rx [Bactrim DS TAB] Famotidine [Pepcid] 20 mg PO BID #60 tablet 09/20/20 Unknown Rx HYDROcodone/APAP 5-325 [[place] 1 each PO Q6HR PRN #14 tablet 09/20/20 Unknown Rx 5/325] levoFLOXacin [Levaquin TAB] 500 mg PO QDAY #5 tablet 09/20/20 Unknown Rx Active Meds: Active Medications Dextrose/Lactated Ringer's (D5lr) 1,000 mls @ 125 mls/hr IV DIRECT BOB Last Admin: 12/29/20 00:30 Dose: 125 mls/hr Documented by: Ondansetron HCl (Ondansetron 4 Mg/2 Ml Inj) 4 mg IV Q4H PRN PRN Reason: Nausea And Vomiting Oxycodone/Acetaminophen (Oxycodone /Acetaminophen 5-325mg Tab) 1 tab PO Q6H PRN PRN Reason: Pain, Moderate (4-6) Review of Systems All systems: negative - Vital Signs Vital signs: Vital Signs Temp Pulse BP Pulse Ox 68.2 F L 64 135/86 92 12/28/20 16:19 12/28/20 16:19 12/28/20 16:19 12/28/20 16:19 Temp Pulse Resp BP Pulse Ox 97.9 F 83 20 98/44 100 12/29/20 04:39 12/29/20 04:39 12/29/20 04:39 12/29/20 04:39 12/29/20 04:39 - Physical Exam Breasts: Positive: deferred Abdomen: Positive: soft, tenderness (minimally tender ) Extremities: Positive: normal Results Result Diagrams: 12/28/20 17:14 12/28/20 17:14 Abnormal lab results 12/28/20 12/28/20 12/28/20 Range/Units 17:14 17:14 17:14 WBC 11.1 H (4.5-11.0) K/mm3 MCH 33 H (28-32) pg MCHC 36 H (30-34) % RDW 13.1 L (13.2-15.2) % Lymph % (Auto) 8.6 L (13.4-35.0) % Lymph # (Auto) 0.9 L (1.2-5.4) K/mm3 Seg Neutrophils % 89.2 H (40.0-70.0) % Seg Neutrophils # 9.9 H (1.8-7.7) K/mm3 Potassium 3.5 L (3.6-5.0) mmol/L Carbon Dioxide 13 L (22-30) mmol/L Creatinine 0.4 L (0.6-1.2) mg/dL Glucose 116 H (65-100) mg/dL Magnesium (1.7-2.3) mg/dL HCG, Quant 88392 H (0-4) mIU/mL U Epithel Cells (Auto) (0-13.0) /HPF 12/28/20 12/28/20 Range/Units 17:14 Unknown WBC (4.5-11.0) K/mm3 MCH (28-32) pg MCHC (30-34) % RDW (13.2-15.2) % Lymph % (Auto) (13.4-35.0) % Lymph # (Auto) (1.2-5.4) K/mm3 Seg Neutrophils % (40.0-70.0) % Seg Neutrophils # (1.8-7.7) K/mm3 Potassium (3.6-5.0) mmol/L Carbon Dioxide (22-30) mmol/L Creatinine (0.6-1.2) mg/dL Glucose (65-100) mg/dL Magnesium 1.60 L (1.7-2.3) mg/dL HCG, Quant (0-4) mIU/mL U Epithel Cells (Auto) 54.0 H (0-13.0) /HPF All other labs normal. Ultrasound: report reviewed Assessment and Plan A: IUP at 13w3d Epigastric pain Nausea and Vomiting H/o pancreatitis diagnosed in August 2020 H/o gastric sleeve Hepatic steatosis P: Continue IV hydration Antiemetics GI consult Advance diet as tolerated
[2020-12-29] MEDS: oxyCODONE /ACETAMINOPHEN 5-325MG TAB PO PRN ×2 (08:57→14:44)
--- NOTE | 2020-12-29 11:09 | Electrocardiograph Report ---
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
[2020-12-29] MEDS: BUTALB/ACETAMINOPHEN/CAFFEINE TAB PO PRN ×2 (12:30→17:23)
--- NOTE | 2020-12-29 15:31 | Consultation ---
History of Present Illness Consult date: 12/29/20 Reason for consult: abdominal pain Chief complaint: Abdominal pain - History of present illness History of present illness: 35-year-old female with past surgical history of laparoscopic sleeve gastrectomy , cholecystectomy who presents to the emergency room with sudden onset epigastric abdominal pain, sharp. This does not radiate. This is associated with nausea and vomiting. No alleviating or exacerbating factors. Patient states the pain felt similar to her prior episode of pancreatitis in 2 months ago. She has not been drinking alcohol since that episode. She is currently . She denies fevers or chills, chest pain, shortness of breath. Past History Past Medical History: GERD, other (Pancreatitis, PUD) Past Surgical History: cholecystectomy, Other (Laparoscopic gastric sleeve) Social history: no significant social history Medications and Allergies Allergies Allergy/AdvReac Type Severity Reaction Status Date / Time No Known Allergies Allergy Verified 05/11/16 07:35 Home Medications Medication Instructions Recorded Confirmed Last Taken Type Melatonin 1 cap PO HS PRN 10/17/19 09/18/20 09/16/20 History Vitamin 1 tab PO DAILY 10/17/19 09/18/20 09/16/20 History Ciprofloxacin HCl 250 mg PO BID #14 tablet 11/04/19 09/18/20 Unknown Rx Docusate Sodium [Colace] 100 mg PO BID PRN #60 capsule 11/04/19 09/18/20 Unknown Rx Ferrous Sulfate [Feosol 325 MG tab] 325 mg PO BID #60 tablet 11/04/19 09/18/20 Unknown Rx Ibuprofen [Motrin] 600 mg PO Q6H PRN #30 tablet 11/04/19 09/18/20 Unknown Rx oxyCODONE /ACETAMINOPHEN [Percocet 1 tab PO Q6HR PRN #40 tablet 11/04/19 09/18/20 Unknown Rx 5/325] Ibuprofen [Motrin] 800 mg PO Q8HR PRN #30 tablet 07/11/20 09/18/20 09/14/20 Rx Ondansetron [Zofran Odt] 4 mg PO Q8HR PRN #15 tab.rapdis 07/11/20 09/18/20 Unknown Rx Sulfamethoxazole/Trimethoprim 1 each PO Q12H #20 tablet 07/11/20 Unknown Rx [Bactrim DS TAB] Famotidine [Pepcid] 20 mg PO BID #60 tablet 09/20/20 Unknown Rx HYDROcodone/APAP 5-325 [[place] 1 each PO Q6HR PRN #14 tablet 09/20/20 Unknown Rx 5/325] levoFLOXacin [Levaquin TAB] 500 mg PO QDAY #5 tablet 09/20/20 Unknown Rx Active Meds: Active Medications Acetaminophen/Butalbital/Caffeine (Butalb/Acetaminophen/Caffeine Tab) 2 tab PO Q4H PRN PRN Reason: Headache Last Admin: 12/29/20 12:30 Dose: 2 tab Documented by: Dextrose/Lactated Ringer's (D5lr) 1,000 mls @ 125 mls/hr IV DIRECT BOB Last Admin: 12/29/20 08:34 Dose: 125 mls/hr Documented by: Ondansetron HCl (Ondansetron 4 Mg/2 Ml Inj) 4 mg IV Q4H PRN PRN Reason: Nausea And Vomiting Last Admin: 12/29/20 08:34 Dose: 4 mg Documented by: Oxycodone/Acetaminophen (Oxycodone /Acetaminophen 5-325mg Tab) 1 tab PO Q6H PRN PRN Reason: Pain, Moderate (4-6) Last Admin: 12/29/20 14:44 Dose: 1 tab Documented by: Review of Systems All systems: negative (10 point ROS performed and negative except for that listed in HPI) Exam Vital Signs Temp Pulse BP Pulse Ox 68.2 F L 64 135/86 92 12/28/20 16:19 12/28/20 16:19 12/28/20 16:19 12/28/20 16:19 Narrative exam: Gen.: Awake, alert, oriented x3. No apparent distress ENT: Trachea midline. No lymphadenopathy. No scleral icterus or conjunctival pallor CV: S1, S2 present Respiratory: No audible wheezes Abdomen: Soft, nondistended, nontender. Well-healed surgical scars. No rebound, rigidity, guarding Extremities: No clubbing, cyanosis, edema Results - Labs 12/28/20 17:14 12/28/20 17:14 Abnormal lab results 12/28/20 12/28/20 12/28/20 Range/Units 17:14 17:14 17:14 WBC 11.1 H (4.5-11.0) K/mm3 MCH 33 H (28-32) pg MCHC 36 H (30-34) % RDW 13.1 L (13.2-15.2) % Lymph % (Auto) 8.6 L (13.4-35.0) % Lymph # (Auto) 0.9 L (1.2-5.4) K/mm3 Seg Neutrophils % 89.2 H (40.0-70.0) % Seg Neutrophils # 9.9 H (1.8-7.7) K/mm3 Potassium 3.5 L (3.6-5.0) mmol/L Carbon Dioxide 13 L (22-30) mmol/L Creatinine 0.4 L (0.6-1.2) mg/dL Glucose 116 H (65-100) mg/dL Magnesium (1.7-2.3) mg/dL HCG, Quant 02115 H (0-4) mIU/mL U Epithel Cells (Auto) (0-13.0) /HPF 12/28/20 12/28/20 Range/Units 17:14 Unknown WBC (4.5-11.0) K/mm3 MCH (28-32) pg MCHC (30-34) % RDW (13.2-15.2) % Lymph % (Auto) (13.4-35.0) % Lymph # (Auto) (1.2-5.4) K/mm3 Seg Neutrophils % (40.0-70.0) % Seg Neutrophils # (1.8-7.7) K/mm3 Potassium (3.6-5.0) mmol/L Carbon Dioxide (22-30) mmol/L Creatinine (0.6-1.2) mg/dL Glucose (65-100) mg/dL Magnesium 1.60 L (1.7-2.3) mg/dL HCG, Quant (0-4) mIU/mL U Epithel Cells (Auto) 54.0 H (0-13.0) /HPF Diabetes panel 12/28/20 Range/Units 17:14 Sodium 138 (137-145) mmol/L Potassium 3.5 L (3.6-5.0) mmol/L Chloride 105.8 (98-107) mmol/L Carbon Dioxide 13 L (22-30) mmol/L BUN 8 (7-17) mg/dL Creatinine 0.4 L (0.6-1.2) mg/dL Glucose 116 H (65-100) mg/dL Calcium 9.1 (8.4-10.2) mg/dL AST 17 (5-40) units/L ALT 10 (7-56) units/L Alkaline Phosphatase 50 (35-129) units/L Total Protein 7.8 (6.3-8.2) g/dL Albumin 3.9 (3.9-5) g/dL Calcium panel 12/28/20 Range/Units 17:14 Calcium 9.1 (8.4-10.2) mg/dL Albumin 3.9 (3.9-5) g/dL Pituitary panel 12/28/20 Range/Units 17:14 Sodium 138 (137-145) mmol/L Potassium 3.5 L (3.6-5.0) mmol/L Chloride 105.8 (98-107) mmol/L Carbon Dioxide 13 L (22-30) mmol/L BUN 8 (7-17) mg/dL Creatinine 0.4 L (0.6-1.2) mg/dL Glucose 116 H (65-100) mg/dL Calcium 9.1 (8.4-10.2) mg/dL Adrenal panel 12/28/20 Range/Units 17:14 Sodium 138 (137-145) mmol/L Potassium 3.5 L (3.6-5.0) mmol/L Chloride 105.8 (98-107) mmol/L Carbon Dioxide 13 L (22-30) mmol/L BUN 8 (7-17) mg/dL Creatinine 0.4 L (0.6-1.2) mg/dL Glucose 116 H (65-100) mg/dL Calcium 9.1 (8.4-10.2) mg/dL Total Bilirubin 0.30 (0.1-1.2) mg/dL AST 17 (5-40) units/L ALT 10 (7-56) units/L Alkaline Phosphatase 50 (35-129) units/L Total Protein 7.8 (6.3-8.2) g/dL Albumin 3.9 (3.9-5) g/dL - Imaging US - abdomen: report reviewed, image reviewed Assessment and Plan 35-year-old female with abdominal pain, epigastric Pt stable. Symptoms significantly improved with supportive care Plan: 1. Clear Liquids - adv diet as dominique 2. IVF 3. prn pain and nausea control 4. PPI 5. No acute surgical intervention at this time. will s/o Thank you for this consultation. Please call with any questions or concerns.
--- NOTE | 2020-12-29 17:19 | Event Note ---
Date: 12/29/20 Full GI consult dictated - pt 13 wks , s/p sujey, s/p gastric sleeve with reported alcohol related pancreatitis this yr now with epigastric pain with nausea now improvcing - labs benign - ultrasound benign - exam benign - doubt pancreatitis, possible gastritis vs other - advance diet to soft - continue other meds - if tolerating po ok to dc from GI standpoint
[2020-12-29 17:21] VITALS: BP 139/82
--- NOTE | 2020-12-29 21:47 | Discharge Summary ---
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 She was given IV fluids and antiemetics and was symptomatically improved on HD 1. She did have GI and General Surgery consults while hospitalized. She was tolerating a regular diet on HD 1 and met discharge criteria. She will follow up at scheduled appt later this week. Condition at discharge: Stable Disposition: 01 HOME / SELF CARE / HOMELESS - Discharge Diagnoses (1) Status: Acute Qualifiers: Weeks of gestation: 13 weeks Qualified Code(s): Z3A.13 - 13 weeks gestation of (2) Epigastric pain Status: Acute (3) Intractable nausea and vomiting Status: Acute Plan - Provider Discharge Summary Activity: routine Diet: routine (BRAT diet) Additional instructions: [] Smoking cessation referral if applicable(refer to patient education folder for contact #) [] Refer to [facility] Booklet Call your doctor immediately for: * Fever > 100.5 * Heavy vaginal bleeding ( >1 pad per hour) * Severe persistent headache * Shortness of breath * Reddened, hot, painful area to leg or breast * Drainage or odor from incision. * Keep incision clean and dry at all times and follow doctor's instructions regarding bathing/showering - Follow up plan Follow up: WINDY ARRIETA MD [Primary Care Provider] - 3-5 Days TIMBO ANN MD [Staff Physician] - 3 Days Forms: [facility] Discharge Summary
--- NOTE | 2020-12-30 03:57 | Consultation ---
DATE OF CONSULTATION: 12/29/2020 REFERRING PHYSICIAN: Margie Lu M.D. INDICATION: 1. Nausea, vomiting. 2. Abdominal pain. HISTORY OF PRESENT ILLNESS: The patient is a 35-year-old black female, now 13 weeks , now been seen by GI for upper GI symptoms. The patient's history is pertinent for history of status post gastric sleeve as well as a history of alcohol abuse earlier this year when she was diagnosed with pancreatitis, which resolved. The patient reports that she started having days of epigastric area pain with some nausea. She was concerned that the pancreatitis was recurrent. The patient reports some reflux. She denies any lower GI symptoms including diarrhea, constipation or rectal bleeding. The patient reports after her pancreatitis earlier in the year, she had completely stopped drinking alcohol. She denies any other significant symptoms at this time. GI is consulted to aid in management. Of note, patient's symptoms have started to improve. PAST MEDICAL HISTORY: 1. Nails's palsy. 2. Lumpectomy. 3. Status post cholecystectomy. 4. Status post gastric bypass. MEDICATIONS: Reviewed and updated in chart. ALLERGIES: No known drug allergies. SOCIAL HISTORY: Reports alcohol abuse up until earlier this year after pancreatitis. FAMILY HISTORY: Negative for colon cancer, IBD, or liver disease. REVIEW OF SYSTEMS: GENERAL: Reports some weakness. HEENT: Denies visual complaints or tinnitus. PULMONARY: Denies shortness of breath, chest pain. GASTROINTESTINAL: Reports nausea, vomiting, now improving. All points of 10-point review of system otherwise negative. PHYSICAL EXAMINATION: VITAL SIGNS: Temperature of 98.5, pulse 76, respirations 20, blood pressure 116/80. GENERAL: Fairly well-nourished female in no acute distress. HEENT: Pupils round and reactive. PULMONARY: Clear to auscultation bilaterally. CARDIOVASCULAR: Regular rate and rhythm. Normal S1, S2. ABDOMEN: Positive bowel sounds, soft. SKIN: No obvious rashes. LABORATORY DATA: Pertinent for a white count of 11, hemoglobin and hematocrit of 13.3 and 36.9, platelet count of 265. Chem-7 within normal limits. Abdominal ultrasound performed on 12/28/20 showed no acute pathology. ASSESSMENT AND PLAN: A 35-year-old female who presents with 13 weeks , status post cholecystectomy and gastric sleeve and reported pancreatitis earlier this year, now with epigastric pain with eating. She also reported some nausea, vomiting. Overall, patient's symptoms are improved. Her exam today is benign. I doubt patient has pancreatitis given normal lipase and stable labs. Possible gastritis versus peptic ulcer disease versus other. PLAN: 1. We would advance diet from clear liquid to soft. 2. Continue antiemetics and pain medications as ordered. 3. If tolerating p.o., okay to discharge from GI standpoint. 4. No indication for endoscopy or interventions. 5. If stable in a.m., okay to discharge from GI standpoint. TID: [id number] RECEIPT: [id number] CARLA/JERONIMO
== END 2020-12-29 17:30 | disposition home or self-care (01) ==
LOC: ED 16:06 → OB 18:24
PROVIDERS: ADMIT Obstetrics & Gynecology; ATTEND Obstetrics & Gynecology
DX: O21.9 Vomiting of pregnancy, unspecified (principal); Z20.822 Contact with and (suspected) exposure to COVID-19; O26.891 Other specified pregnancy related conditions, first trimester; R10.13 Epigastric pain; E83.42 Hypomagnesemia; E87.2 Acidosis; E86.0 Dehydration; K21.9 Gastro-esophageal reflux disease without esophagitis; K76.0 Fatty (change of) liver, not elsewhere classified; K27.9 Peptic ulcer, site unspecified, unspecified as acute or chronic, without hemorrhage or perforation; O99.331 Smoking (tobacco) complicating pregnancy, first trimester; F17.210 Nicotine dependence, cigarettes, uncomplicated; Z3A.13 13 weeks gestation of pregnancy; Z90.49 Acquired absence of other specified parts of digestive tract; Z98.84 Bariatric surgery status; Z79.899 Other long term (current) drug therapy; Z98.890 Other specified postprocedural states; Z90.710 Acquired absence of both cervix and uterus
CPT/HCPCS: 36415; 76705; 76801; 80053; 80307; 81001; 82140; 83690; 83735; 84702; 85025; 93005; 96361; 96365; 96375; 96376; 99285; G0378; J1170; J2405; J2765; J3475; J7121; U0003; J7070

== ENCOUNTER 2021-01-30 21:19 | Emergency (ER) | payer MEDICAID ==
[2021-01-30] MEDS ORDERED: SODIUM CHLORIDE 0.9% 1000 ML 1,000 ML IV ONE (22:01)
[2021-01-30] MEDS ORDERED: METOCLOPRAMIDE 10 MG/2 ML INJ IV ONE (22:02)
[2021-01-30] MEDS ORDERED: diphenhydrAMINE 50 MG/ML VIAL IV ONE (22:02)
[2021-01-30 23:05] LABS: Basophils # (Auto) 0.1 K/mm3 (0.0-0.1); Basophils % (Auto) 0.8 % (0.0-1.8); Eosinophils % (Auto) 0.3 % (0.0-4.3); Hematocrit 36.2 % (30.3-42.9); Hemoglobin 12.3 gm/dl (10.1-14.3); Lymphocytes # (Auto) 0.9 K/mm3 (1.2-5.4); Lymphocytes % (Auto) 7.3 % (13.4-35.0); Mean Corpuscular HGB Conc 34 % (30-34); Mean Corpuscular Volume 93 fl (79-97); Monocytes # (Auto) 0.4 K/mm3 (0.0-0.8); Monocytes % (Auto) 3.1 % (0.0-7.3); Platelet Count 243 K/mm3 (140-440); Red Cell Distribution Width 12.8 % (13.2-15.2)
[2021-01-30 23:08] LABS: Alanine Aminotransferase 6 units/L (7-56); Albumin 3.8 g/dL (3.9-5); Blood Urea Nitrogen 9 mg/dL (7-17); Calcium 9.1 mg/dL (8.4-10.2); Hemolysis Index 2
[2021-01-30 23:17] LABS: BUN/Creatinine Ratio 18
[2021-01-31] MEDS ORDERED: ONDANSETRON 4 MG/2 ML INJ IV ONE (00:09)
--- NOTE | 2021-01-31 00:51 | Emergency Department Report ---
ED General Adult HPI - General Chief complaint: Abdominal Pain Stated complaint: ABD PAIN,18 WKS PREG,FAINT,CHEST PAIN Time Seen by Provider: 01/30/21 21:34 Source: patient Mode of arrival: Ambulatory Limitations: No Limitations - History of Present Illness Initial comments: Patient presents to the emergency department the chief complaint of nausea and vomiting that started around 5 PM yesterday. Patient dates she is 18 weeks and was given a prescription of Phenergan by her OB. She states that she took 2 doses of yesterday with minimal relief. Patient states she is having some upper abdominal cramping right below her esophagus but denies any bernadine abdominal pain. She states this cramping is from her multiple episodes of vomiting. She denies any blood in her emesis. She denies any vaginal bleeding, vaginal discharge, or labor-like pains. -: Sudden Severity scale (0 -10): 0 Consistency: constant Improves with: none Worsens with: none Associated Symptoms: denies other symptoms Treatments Prior to Arrival: none - Related Data Home Medications Medication Instructions Recorded Confirmed Last Taken Melatonin 1 cap PO HS PRN 10/17/19 09/18/20 09/16/20 Vitamin 1 tab PO DAILY 10/17/19 09/18/20 09/16/20 Previous Rx's Medication Instructions Recorded Last Taken Type Ciprofloxacin HCl 250 mg PO BID #14 tablet 11/04/19 Unknown Rx Docusate Sodium [Colace] 100 mg PO BID PRN #60 capsule 11/04/19 Unknown Rx Ferrous Sulfate [Feosol 325 MG tab] 325 mg PO BID #60 tablet 11/04/19 Unknown Rx Ibuprofen [Motrin] 600 mg PO Q6H PRN #30 tablet 11/04/19 Unknown Rx oxyCODONE /ACETAMINOPHEN [Percocet 1 tab PO Q6HR PRN #40 tablet 11/04/19 Unknown Rx 5/325] Ibuprofen [Motrin] 800 mg PO Q8HR PRN #30 tablet 07/11/20 09/14/20 Rx Ondansetron [Zofran Odt] 4 mg PO Q8HR PRN #15 tab.rapdis 07/11/20 Unknown Rx Sulfamethoxazole/Trimethoprim 1 each PO Q12H #20 tablet 07/11/20 Unknown Rx [Bactrim DS TAB] Famotidine [Pepcid] 20 mg PO BID #60 tablet 09/20/20 Unknown Rx HYDROcodone/APAP 5-325 [[place] 1 each PO Q6HR PRN #14 tablet 09/20/20 Unknown Rx 5/325] levoFLOXacin [Levaquin TAB] 500 mg PO QDAY #5 tablet 09/20/20 Unknown Rx Metoclopramide [Reglan] 10 mg PO Q6HR PRN #20 tab 01/31/21 Unknown Rx Ondansetron [Zofran Odt] 4 mg PO Q4HR PRN #20 tab.rapdis 01/31/21 Unknown Rx Allergies Allergy/AdvReac Type Severity Reaction Status Date / Time lisinopril Allergy Unknown Verified 01/30/21 21:28 ED Review of Systems ROS: Stated complaint: ABD PAIN,18 WKS PREG,FAINT,CHEST PAIN Other details as noted in HPI Comment: All other systems reviewed and negative Constitutional: denies: chills, fever Eyes: denies: eye pain, eye discharge, vision change ENT: denies: ear pain, throat pain Respiratory: denies: cough, shortness of breath, wheezing Cardiovascular: denies: chest pain, palpitations Endocrine: no symptoms reported Gastrointestinal: nausea, vomiting. denies: abdominal pain, diarrhea Genitourinary: denies: urgency, dysuria, discharge Musculoskeletal: denies: back pain, joint swelling, arthralgia Skin: denies: rash, lesions Neurological: denies: headache, weakness, paresthesias Psychiatric: denies: anxiety, depression Hematological/Lymphatic: denies: easy bleeding, easy bruising ED Past Medical Hx - Past Medical History Previous Medical History?: Yes Hx Hypertension: No Hx Heart Attack/AMI: No Hx Congestive Heart Failure: No Hx Diabetes: No Hx Deep Vein Thrombosis: No Hx Pulmonary Embolism: No Hx GERD: No Hx Liver Disease: No Hx Renal Disease: No Hx Sickle Cell Disease: No Hx Arthritis: No Hx Headaches / Migraines: Yes Hx Seizures: No Hx Kidney Stones: No Hx Asthma: No Hx COPD: No Hx Tuberculosis: No Hx Dementia: No Hx HIV: No Additional medical history: Peptic ulcer disease, SBO - Surgical History Past Surgical History?: Yes Hx Coronary Stent: No Hx Open Heart Surgery: No Hx Pacemaker: No Hx Internal Defibrillator: No Hx Cholecystectomy: Yes Hx Appendectomy: No Hx Breast Surgery: Yes Additional Surgical History: Lumpectomy-benign, gastric sleeve - Social History Smoking Status: Current Every Day Smoker - Medications Home Medications: Home Medications Medication Instructions Recorded Confirmed Last Taken Type Melatonin 1 cap PO HS PRN 10/17/19 09/18/20 09/16/20 History Vitamin 1 tab PO DAILY 10/17/19 09/18/20 09/16/20 History Ciprofloxacin HCl 250 mg PO BID #14 tablet 11/04/19 09/18/20 Unknown Rx Docusate Sodium [Colace] 100 mg PO BID PRN #60 capsule 11/04/19 09/18/20 Unknown Rx Ferrous Sulfate [Feosol 325 MG tab] 325 mg PO BID #60 tablet 11/04/19 09/18/20 Unknown Rx Ibuprofen [Motrin] 600 mg PO Q6H PRN #30 tablet 11/04/19 09/18/20 Unknown Rx oxyCODONE /ACETAMINOPHEN [Percocet 1 tab PO Q6HR PRN #40 tablet 11/04/19 09/18/20 Unknown Rx 5/325] Ibuprofen [Motrin] 800 mg PO Q8HR PRN #30 tablet 07/11/20 09/18/20 09/14/20 Rx Ondansetron [Zofran Odt] 4 mg PO Q8HR PRN #15 tab.rapdis 07/11/20 09/18/20 Unknown Rx Sulfamethoxazole/Trimethoprim 1 each PO Q12H #20 tablet 07/11/20 Unknown Rx [Bactrim DS TAB] Famotidine [Pepcid] 20 mg PO BID #60 tablet 09/20/20 Unknown Rx HYDROcodone/APAP 5-325 [[place] 1 each PO Q6HR PRN #14 tablet 09/20/20 Unknown Rx 5/325] levoFLOXacin [Levaquin TAB] 500 mg PO QDAY #5 tablet 09/20/20 Unknown Rx Metoclopramide [Reglan] 10 mg PO Q6HR PRN #20 tab 01/31/21 Unknown Rx Ondansetron [Zofran Odt] 4 mg PO Q4HR PRN #20 tab.rapdis 01/31/21 Unknown Rx ED Physical Exam - General Limitations: No Limitations General appearance: alert, in no apparent distress - Head Head exam: Present: atraumatic, normocephalic - Eye Eye exam: Present: normal appearance - ENT ENT exam: Present: mucous membranes dry - Neck Neck exam: Present: normal inspection - Respiratory Respiratory exam: Present: normal lung sounds bilaterally. Absent: respiratory distress - Cardiovascular Cardiovascular Exam: Present: regular rate, normal rhythm. Absent: systolic murmur, diastolic murmur, rubs, gallop - GI/Abdominal GI/Abdominal exam: Present: soft, normal bowel sounds, other (Gravid uterus but nontender to palpation). Absent: distended, tenderness - Extremities Exam Extremities exam: Present: normal inspection - Back Exam Back exam: Present: normal inspection - Neurological Exam Neurological exam: Present: alert, oriented X3, CN II-XII intact. Absent: motor sensory deficit - Psychiatric Psychiatric exam: Present: normal affect, normal mood - Skin Skin exam: Present: warm, dry, intact, normal color. Absent: rash ED Course Vital Signs 01/30/21 21:24 Temperature 97.6 F Pulse Rate 81 Respiratory 18 Rate Blood Pressure 145/81 O2 Sat by Pulse 100 Oximetry ED Medical Decision Making - Lab Data Result diagrams: 01/30/21 22:17 01/30/21 22:17 Lab Results 01/30/21 01/30/21 Range/Units 22:17 22:17 WBC 12.0 H (4.5-11.0) K/mm3 RBC 3.90 (3.65-5.03) M/mm3 Hgb 12.3 (10.1-14.3) gm/dl Hct 36.2 (30.3-42.9) % MCV 93 (79-97) fl MCH 32 (28-32) pg MCHC 34 (30-34) % RDW 12.8 L (13.2-15.2) % Plt Count 243 (140-440) K/mm3 Lymph % (Auto) 7.3 L (13.4-35.0) % Humphreys % (Auto) 3.1 (0.0-7.3) % Eos % (Auto) 0.3 (0.0-4.3) % Baso % (Auto) 0.8 (0.0-1.8) % Lymph # (Auto) 0.9 L (1.2-5.4) K/mm3 Humphreys # (Auto) 0.4 (0.0-0.8) K/mm3 Eos # (Auto) 0.0 (0.0-0.4) K/mm3 Baso # (Auto) 0.1 (0.0-0.1) K/mm3 Seg Neutrophils % 88.5 H (40.0-70.0) % Seg Neutrophils # 10.6 H (1.8-7.7) K/mm3 Sodium 138 (137-145) mmol/L Potassium 4.0 (3.6-5.0) mmol/L Chloride 102.6 (98-107) mmol/L Carbon Dioxide 18 L (22-30) mmol/L Anion Gap 21 mmol/L BUN 9 (7-17) mg/dL Creatinine 0.5 L (0.6-1.2) mg/dL Estimated GFR > 60 ml/min BUN/Creatinine Ratio 18 % Glucose 121 H (65-100) mg/dL Calcium 9.1 (8.4-10.2) mg/dL Total Bilirubin 0.40 (0.1-1.2) mg/dL AST 12 (5-40) units/L ALT 6 L (7-56) units/L Alkaline Phosphatase 52 (35-129) units/L Total Protein 7.7 (6.3-8.2) g/dL Albumin 3.8 L (3.9-5) g/dL Albumin/Globulin Ratio 1.0 % - Medical Decision Making Patient given IV Benadryl, IV Reglan, IV Zofran with significant improvement of her symptoms. On reevaluation of the patient at 1:25 AM she states she is no longer nauseous and is okay with going home. Critical care attestation.: If time is entered above; I have spent that time in minutes in the direct care of this critically ill patient, excluding procedure time. ED Disposition Clinical Impression: Nausea & vomiting Disposition: 01 HOME / SELF CARE / HOMELESS Is pt being admited?: No Does the pt Need Aspirin: No Condition: Stable Instructions: Abdominal Pain (ED), Nausea and Vomiting, Adult Additional Instructions: Return if worse or with any vaginal bleeding or discharge Referrals: ASHLEY PEDRAZA MD [Primary Care Provider] - 3-5 Days [facility] [Provider Group] - 3-5 Days Time of Disposition: 01:37
[2021-01-31] MEDS ORDERED: PROCHLORPERAZINE EDISYLATE 10 MG/2 ML VIAL IV ONE (00:59)
[2021-01-31 01:54] VITALS: BP 128/78
== END 2021-01-31 01:57 | disposition home or self-care (01) ==
LOC: ED 21:19
DX: O21.9 Vomiting of pregnancy, unspecified (principal); O26.892 Other specified pregnancy related conditions, second trimester; Z3A.18 18 weeks gestation of pregnancy; F17.200 Nicotine dependence, unspecified, uncomplicated; Z90.49 Acquired absence of other specified parts of digestive tract
CPT/HCPCS: 36415; 80053; 85025; 96361; 96374; 96375; 99283; J0780; J1200; J2405; J2765; J7030; Q0162

== ENCOUNTER 2021-06-13 14:35 | Inpatient (IN) | payer MEDICAID ==
[2021-06-13] MEDS ORDERED: OXYTOCIN 10 UNIT/1 ML INJ IM PRN (15:21)
[2021-06-13] MEDS ORDERED: MINERAL OIL 30 ML ORAL LIQD PO PRN (15:21)
[2021-06-13] MEDS ORDERED: LOPERAMIDE 2 MG CAP PO PRN (15:21)
[2021-06-13] MEDS ORDERED: ACETAMINOPHEN 325 MG TAB PO PRN (15:21)
[2021-06-13] MEDS ORDERED: METHYLERGONOVINE MALEATE 0.2 MG/ML VIAL IM PRN (15:21)
[2021-06-13] MEDS ORDERED: NALOXONE 0.4 MG/1 ML INJ IV PRN (15:21)
[2021-06-13] MEDS ORDERED: ePHEDrine SULFATE 50 MG/1 ML INJ IV PRN (15:21)
[2021-06-13] MEDS ORDERED: fentaNYL 100 MCG/2 ML INJ IV PRN (15:21)
[2021-06-13] MEDS ORDERED: miSOPROStol 200 MCG TAB PR PRN (15:21)
[2021-06-13] MEDS ORDERED: TERBUTALINE 1 MG/1 ML INJ SUB-Q PRN (15:21)
[2021-06-13] MEDS ORDERED: BUTORPHANOL 2 MG/1 ML INJ IV PRN (15:21)
[2021-06-13] MEDS ORDERED: ONDANSETRON 4 MG/2 ML INJ IV PRN (15:21)
[2021-06-13] MEDS ORDERED: CARBOPROST TROMETHAMINE 250 MCG/1 ML INJ IM PRN (15:21)
[2021-06-13] MEDS ORDERED: LACTATED RINGERS 1,000 ML IV SCH ×2 (15:30→19:45)
--- NOTE | 2021-06-13 15:53 | History and Physical Report ---
History of Present Illness Date of examination: 06/13/21 Date of admission: 06/13/21 15:21 Chief complaint: contractions, spotting, leaking fluid History of present illness: Pt is a 36 year old -Russian female ROQUE 07/03/21 at 37w1d who presents with spotting, painful contractions and leakage of fluid since 11 am. She is noted to be 3 - 3.5 cm dilated on admission. She has had care at [facility] since 14 wks complicated by advanced maternal age, fetus with Down's Syndrome with EIF, pericardial effusion noted 02/18/21, suspected right ventricular hypertrophy 03/31/21 with referral to [place] for echo, h/o gastric sleeve, h/o preeclampsia, genital herpes without lesion or prodrome, increased SMA risk, IUGR that on sono 03/31/21 resolved per [facility] note 05/14/21, neck pain s/p Ortho referral, placental lakes, previous section, h/o hemorrhage in prior in 2019 requiring uterine artery embolization, suspected thyromegaly, mass of right lobe of thyroid s/p thyroid ultrasound s/p Endocrine referral. Her GBS status is unknown. Past History Past Medical History: other (Attention Deficit Disorder ) Past Surgical History: cholecystectomy, gastric bypass (gastric sleeve ), INFORMATION RESOURCES MANAGER/uterine surgery (Uterine Artery Embolization in 2019 ), section, other INFORMATION RESOURCES MANAGER History: abnormal PAP smear (ASCUS), herpes (no lesion or prodrome ) Family/Genetic History: diabetes, hypertension, cancer Social history: no significant social history - Obstetrical History Expected Date of Delivery: 07/03/21 Actual Gestation: 37 Week(s) 1 Day(s) : 5 Para: 3 Hx # Term Pregnancies: 3 Number of Pregnancies: 0 Spontaneous Abortions: 1 Induced : 0 Number of Living Children: 3 Medications and Allergies Allergies Allergy/AdvReac Type Severity Reaction Status Date / Time lisinopril Allergy Unknown Verified 06/13/21 14:58 Home Medications Medication Instructions Recorded Confirmed Last Taken Type Melatonin 1 cap PO HS PRN 10/17/19 09/18/20 09/16/20 History Vitamin 1 tab PO DAILY 10/17/19 09/18/20 09/16/20 History Ciprofloxacin HCl 250 mg PO BID #14 tablet 11/04/19 09/18/20 Unknown Rx Docusate Sodium [Colace] 100 mg PO BID PRN #60 capsule 11/04/19 09/18/20 Unknown Rx Ferrous Sulfate [Feosol 325 MG tab] 325 mg PO BID #60 tablet 11/04/19 09/18/20 Unknown Rx Ibuprofen [Motrin] 600 mg PO Q6H PRN #30 tablet 11/04/19 09/18/20 Unknown Rx oxyCODONE /ACETAMINOPHEN [Percocet 1 tab PO Q6HR PRN #40 tablet 11/04/19 09/18/20 Unknown Rx 5/325] Ibuprofen [Motrin] 800 mg PO Q8HR PRN #30 tablet 07/11/20 09/18/20 09/14/20 Rx Ondansetron [Zofran Odt] 4 mg PO Q8HR PRN #15 tab.rapdis 07/11/20 09/18/20 Unknown Rx Sulfamethoxazole/Trimethoprim 1 each PO Q12H #20 tablet 07/11/20 Unknown Rx [Bactrim DS TAB] Famotidine [Pepcid] 20 mg PO BID #60 tablet 09/20/20 Unknown Rx HYDROcodone/APAP 5-325 [[place] 1 each PO Q6HR PRN #14 tablet 09/20/20 Unknown Rx 5/325] levoFLOXacin [Levaquin TAB] 500 mg PO QDAY #5 tablet 09/20/20 Unknown Rx Metoclopramide [Reglan] 10 mg PO Q6HR PRN #20 tab 01/31/21 Unknown Rx Ondansetron [Zofran Odt] 4 mg PO Q4HR PRN #20 tab.rapdis 01/31/21 Unknown Rx Active Meds: Active Medications Acetaminophen (Acetaminophen 325 Mg Tab) 650 mg PO Q4H PRN PRN Reason: Pain, Mild (1-3) Butorphanol Tartrate (Butorphanol 2 Mg/1 Ml Inj) 1 mg IV Q2H PRN PRN Reason: Pain, Moderate(4-6) LABOR PAIN Carboprost Tromethamine (Carboprost Tromethamine 250 Mcg/1 Ml Inj) 250 mcg IM ONCE PRN PRN Reason: Uterine Bleeding Ephedrine Sulfate (Ephedrine Sulfate 50 Mg/1 Ml Inj) 10 mg IV Q2M PRN PRN Reason: Hypotension Fentanyl (Fentanyl 100 Mcg/2 Ml Inj) 100 mcg IV Q2H PRN PRN Reason: Pain,Severe (7-10) LABOR PAIN Oxytocin/Sodium Chloride (Pitocin/Ns 30 Unit/500ml) 30 units in 500 mls @ 2 mls/hr IV TITR BOB; Protocol Lactated Ringer's (Lactated Ringers) 1,000 mls @ 125 mls/hr IV DIRECT BOB Oxytocin/Sodium Chloride (Pitocin/Ns 30 Unit/500ml) 30 units in 500 mls @ 40 mls/hr IV TITR BOB; Protocol Ampicillin Sodium (Ampicillin/Ns 2 Gm/100 Ml) 2 gm in 100 mls @ 100 mls/hr IV ONCE ONE; Protocol Stop: 06/13/21 16:59 Ampicillin Sodium (Ampicillin/Ns 1 Gm/50 Ml) 1 gm in 50 mls @ 100 mls/hr IV Q4H BOB; Protocol Lidocaine (Lidocaine (2%) 20 Mg/1 Ml Vial 20 Ml Mdv) 20 ml INFILTRATI ONCE ONE Stop: 06/13/21 16:01 Loperamide HCl (Loperamide 2 Mg Cap) 2 mg PO ONCE PRN PRN Reason: give with Hemabate Methylergonovine Maleate (Methylergonovine Maleate 0.2 Mg/Ml Vial) 0.2 mg IM ONCE PRN PRN Reason: Uterine Bleeding Mineral Oil (Mineral Oil 30 Ml Oral Liqd) 30 ml PO QHS PRN PRN Reason: Constipation Misoprostol (Misoprostol 200 Mcg Tab) 800 mcg AR ONCE PRN PRN Reason: Uterine Bleeding Naloxone HCl (Naloxone 0.4 Mg/1 Ml Inj) 0.1 mg IV Q2MIN PRN PRN Reason: Res Rate </= 8 or 02 SAT < 92% Ondansetron HCl (Ondansetron 4 Mg/2 Ml Inj) 4 mg IV Q8H PRN PRN Reason: Nausea And Vomiting Oxytocin (Oxytocin 10 Unit/1 Ml Inj) 10 unit IM ONCE PRN PRN Reason: Uterine Bleeding Terbutaline Sulfate (Terbutaline 1 Mg/1 Ml Inj) 0.25 mg SUB-Q ONCE PRN PRN Reason: Hyperstimulation/Hypertonicity Valacyclovir HCl (Valacyclovir 500 Mg Tab) 1,000 mg PO QDAY BOB Review of Systems All systems: negative - Vital Signs Vital signs: Vital Signs Pulse Pulse Ox 66 95 06/13/21 14:58 06/13/21 14:58 Temp Pulse Resp BP Pulse Ox 98.9 F 61 18 135/88 100 06/13/21 15:04 06/13/21 15:03 06/13/21 15:04 06/13/21 15:01 06/13/21 15:04 - Physical Exam Breasts: Positive: deferred Abdomen: Positive: soft (gravid,obesity ) Genitourinary (Female): Positive: normal external genitalia Uterus: Positive: enlarged (gravid ) Extremities: Positive: normal. Negative: tenderness - Obstetrical FHR: auscultation normal Uterine Contraction Monitor Mode: External Cervical Dilatation: 3.5 Cervical Effacement Percentage: 70 station: -2 Uterine Contraction Pattern: Regular Uterine Tone Measurement Phase: Resting Uterine Contraction Intensity: Moderate Results All other labs normal. Assessment and Plan A: IUP at 37w1d SROM Active Labor Previous x 1 Advanced Maternal Age Fetus with Down's Syndrome with EIF, Pericardial effusion noted 02/18/21, suspected right ventricular hypertrophy 03/31/21 with referral to [place] for echo, H/o gastric sleeve H/o preeclampsia genital herpes without lesion or prodrome Increased SMA risk, IUGR that on sono 03/31/21 resolved per [facility] note 05/14/21 Neck pain s/p Ortho referral Placental [place] H/o hemorrhage in prior in 2019 requiring uterine artery embolization Suspected thyromegaly, mass of right lobe of thyroid s/p thyroid ultrasound s/p Endocrine referral GBS status unknown P: Admit to labor and delivery Place two IVs for IV access Sign consents for section, vaginal after section, and blood transfusion Closely monitor clinical status
[2021-06-13] MEDS ORDERED: OXYTOCIN DRIP 30 UNITS/500 ML BAG IV SCH ×3 (16:00→20:00)
[2021-06-13] MEDS ORDERED: AMPICILLIN/NS 2 GM/100 ML 2 GM/100 ML BAG IV ONE (16:00)
[2021-06-13] MEDS ORDERED: LIDOCAINE (2%) 20 MG/1 ML VIAL 20 ML MDV INFILTRATI ONE (16:00)
[2021-06-13] MEDS ORDERED: valACYclovir 500 MG TAB PO SCH (17:00)
[2021-06-13 17:49] LABS: Hematocrit 33.7 % (30.3-42.9); Hemoglobin 10.8 gm/dl (10.1-14.3); Mean Corpuscular HGB Conc 32 % (30-34); Mean Corpuscular Volume 86 fl (79-97); Platelet Count 256 K/mm3 (140-440); Red Blood Count 3.93 M/mm3 (3.65-5.03); Red Cell Distribution Width 14.8 % (13.2-15.2)
[2021-06-13] MEDS ORDERED: fentaNYL-BUPIV 2 MCG/ML-0.125% 200 MCG/100 ML BAG EPIDURAL ONE (18:22)
--- NOTE | 2021-06-13 18:42 | Anesthesia Consultation ---
Anesthesia Consult and Med Hx Date of service: 06/13/21 - Airway Anesthetic Teeth Evaluation: Poor ROM Head & Neck: Adequate Mental/Hyoid Distance: Adequate Mallampati Class: Class II Intubation Access Assessment: Probably Good - Pulmonary Exam CTA: Yes - Cardiac Exam Cardiac Exam: RRR - Pre-Operative Health Status ASA Pre-Surgery Classification: ASA2 Proposed Anesthetic Plan: Epidural - Pulmonary Hx Smoking: Yes Hx Asthma: No Hx Respiratory Symptoms: No SOB: No COPD: No Hx Pneumonia: No Hx Sleep Apnea: No - Cardiovascular System Hx Hypertension: No Hx Coronary Artery Disease: No Hx Heart Attack/AMI: No Hx Angina: No Hx Percutaneous Transluminal Coronary Angioplasty (PTCA): No Hx Cardia Arrhythmia: No Hx Pacemaker: No Hx Internal Defibrillator: No Hx Valvular Heart Disease: No Hx Heart Murmur: No Hx Peripheral Vascular Disease: No - Central Nervous System Hx Neuromuscular Disorder: No Hx Seizures: No CVA: No Hx Back Pain: No Hx Psychiatric Problems: Yes - Gastrointestinal Hx Ulcer: Yes Hx Gastroesophageal Reflux Disease: No - Endocrine Hx Renal Disease: No Hx End Stage Renal Disease: No Hx Cirrhosis: No Hx Liver Disease: No Hx Insulin Dependent Diabetes: No Hx Non-Insulin Dependent Diabetes: No Hx Thyroid Disease: No Hx Hypothyroidism: No Hx Hyperthyroidism: No (sees inspection manager "small gland", pt to f/u after ) - Hematic Hx Anemia: No Hx Sickle Cell Disease: No - Other Systems Hx Alcohol Use: Yes Hx Substance Use: Yes (Marijiuanas daily ) Hx Cancer: No Hx Obesity: Yes
--- NOTE | 2021-06-13 18:44 | Progress Note ---
Labor Epidural - Labor Epidural Start Time: 18:12 Stop Time: 18:17 Performed by:: CONSTANCE SPARROW Procedure: Patient is requesting epidural for labor pain. H&P and labs reviewed. Procedure explained, questions answered, consent obtained. Patient placed in sitting position with monitors applied. Timeout performed immediately before start of procedure. Prep/drape in usual sterile fashion. Skin localized 3 mL 1% lidocaine at L[3]-L[4] interspace. 17-gauge Touhy epidural needle advanced to CODIE with saline at [7] cm x 1 attempt. No blood/CSF noted via epidural needle. Epidural catheter advanced to [12] cm. Negative aspiration for blood and CSF via catheter, negative response to test dose 3 ml 1.5% lidocaine w/ Epi. Sterile dressing applied followed by tape reinforcement. Patient tolerated procedure well. No immediate complications noted.
--- NOTE | 2021-06-13 18:44 | Event Note ---
Date: 06/13/21 Pt now more comfortable with epidural. Category II tracing. SVE: /2. Rupture of forebag-clear. IUPC placed. Continue to monitor maternal and status.
--- NOTE | 2021-06-13 19:31 | Event Note ---
Date: 06/13/21 Pt with deep variable decel to the 70s. FSE placed. Begin amnioinfusion. Closely monitor clinical status.
[2021-06-13] MEDS ORDERED: METOCLOPRAMIDE 10 MG/2 ML INJ IV ONE (19:36)
[2021-06-13] MEDS ORDERED: FAMOTIDINE 20 MG/2 ML INJ IV ONE (19:36)
[2021-06-13] MEDS ORDERED: BICITRA ORAL LIQD 30ML PO ONE (19:36)
[2021-06-13] MEDS ORDERED: SODIUM CHLORIDE 0.9% 500 ML 500 ML IV ONE (19:39)
--- NOTE | 2021-06-13 19:43 | Event Note ---
Date: 06/13/21 Dr Samayoa called blood blank to make them aware of this patient with history of hemorrhage in prior and potential need for A positive blood. He reports that there are currently 6 units of A positive blood in the blood bank. Two units of PRBCs ordered at this time.
[2021-06-13] MEDS ORDERED: SODIUM CHLORIDE 0.9% 1000 ML 1,000 ML VG SCH (19:45)
[2021-06-13] MEDS ORDERED: AMPICILLIN/NS 1 GM/50 ML 1 GM/50 ML BAG IV SCH (20:00)
[2021-06-13] MEDS ORDERED: ceFAZolin/Water 2 GM/20 ML 2 GM/20 ML SYRINGE IV NR (20:00)
[2021-06-13] MEDS ORDERED: TRANEXAMIC ACID 1,000 MG/10 ML ONE (20:07)
[2021-06-13] MEDS ORDERED: ONDANSETRON 4 MG/2 ML INJ ONE (20:07)
[2021-06-13] MEDS ORDERED: SODIUM CHLORIDE 0.9% 100 ML ONE (20:15)
[2021-06-13] MEDS ORDERED: LIDOCAINE 2%/EPINEPHRINE 1:200,000 VIAL (20 ML) INFILTRATI ONE (20:19)
[2021-06-13] MEDS ORDERED: SODIUM CHLORIDE 0.9% IRR 1,500 ML BOTTLE IR ONE (20:20)
[2021-06-13] MEDS ORDERED: WATER FOR IRRIG STERILE 1,500 ML BOTTLE IR ONE (20:20)
[2021-06-13] MEDS ORDERED: LACTATED RINGERS 2,000 ML ONE (20:44)
[2021-06-13] MEDS ORDERED: ePHEDrine SULFATE 50 MG/1 ML INJ ONE (20:52)
[2021-06-13] MEDS ORDERED: LACTATED RINGERS 1,000 ML ONE ×2 (20:53→21:12)
[2021-06-13] MEDS ORDERED: BUPIVACAINE/PF (0.5%) 5 MG/1 ML 30 ML VIAL INFILTRATI ONE (21:57)
--- NOTE | 2021-06-13 22:56 | Anesthesia Day of Surgery ---
Anesthesia Day of Surgery - Day of Surgery Patient Examined: Yes Patient H&P Reviewed: Yes Patient is NPO: Yes
--- NOTE | 2021-06-13 23:01 | Operative Report ---
Operative Report Operative Report: Date of procedure: June 13, 2021 Preoperative diagnosis: 1) IUP at 37w1d 2) Intolerance to Labor- repet itive deep variable decelerations to the 70s 3) Previous Section x 1 4) Advanced Maternal Age 5) Chronic Hypertension Postoperative diagnosis: Same 6) Hemorrhage Procedure: Repeat classical section Surgeon: Gladis Samayoa M.D. Outdoor Advertising Leasing Agent: Romana Herzog M.D. Anesthesia: Regional Findings: 1) Viable male , Apgars 2, 6 and 8, weight 2370g in cephalic presentati on. Tight nuchal cord x 1 2) Normal-appearing uterus ovaries and tubes 3) Vertical extension in the left lower uterine segment QBL: 2348 mL Intake: 5000 mL Crystalloid; 2 units PRBCs Urine output: 300 mL, clear at the end of the procedure Drains: Osborne to gravity Specimens: Placenta to pathology Complications: Intraoperative Hemorrhage. Counts correct x 3 Disposition: Stable to PACU Indication for procedure: Pt is a 36 year old female who presents in active labor with rupture of membranes and a history of one section. She progressed to 6 cm but began to have repetitive deep variables to the 70s. The decision was made to proceed with repeat section. Operation in detail: After the risks, benefits, alternatives and complications were explained to the patient she gave informed consent for the procedure. She was subsequently taken to the operating room where regional anesthesia was noted to be adequate. She was placed in the dorsal supine position with leftward tilt and prepped and draped in a normal sterile fashion. heart tones were noted prior to incision. A timeout was performed. A Pfannenstiel skin incision was made with the knife and carried down to the layer of the fascia with the Bovie. The fascia was incised in the midline and the fascial incision was extended bilaterally with the Bovie. The fascial incision was then stretched. The rectus muscles were then in the midline for adequate visualization. The peritoneum was then entered sharply between two Michelle clamps. The peritoneal incision was extended with good vis ualization of the bladder. The peritoneal incision was then stretched. An Willis retractor was placed. The bladder blade was then placed. The vesicouterine peritoneum was grasped with smooth pick ups and incised with Metzenbaum scissors. A bladder flap was then created digitally and the bladder blade was replaced. A J shaped uterine incision was made in the lower uterine segment with a knife and extended vertically on the left with the bandage scissors in an effort to avoid visible vessels on the left side of the uterus. head delivered with difficulty, tight nuchal cord x 1 was reduced, followed by delivery of the shoulders and body. bulb suctioned at delivery. Cord clamped and cut. handed to NICU staff in attendance. At this time, the assistance of Romana Herzog was requested. She entered the case after delivery of the fetus. The placenta was then delivered manually. The uterus was then exteriorized and cleared of all clots and debris. The extension in the lower uterine segment was reapproximated with 2-0 chromic in a running locked fashion. A second layer of 2-0 chromic was used in an interrupted fashion to further reapproximate the tissue to hemostasis. The transverse portion of the incision was reapproximted with 0 Monocryl in a running locked fashion to hemostasis. The hysterotomy was then reapproximated with 0 Monocryl in a running locked fashion. A second layer of the same suture was used in imbricating fashion. The hysterotomy was inspected and hemostasis was noted. The gutters were irrigated and cleared of all clots and debris. The uterus was placed back into the peritoneal cavity. The hysterotomy was again inspected and noted to be hemostatic. Surgicel was placed over the hysterotomy. The Willis retractor was removed. The peritoneum was reapproximated with 0 Monocryl in a running fashion incorporating the rectus muscles. The fascia was reapproximated with 0 Vicryl in a running fashion. The subcutaneous tissue was r eapproximated with 3-0 Vicryl in a running fashion. The skin was reapproximated with judah. The incision was then covered with a pressure dressing. The procedure was then ended. The patient tolerated the procedure well and was taken to the PACU in stable condition. All instrument, lap, and needle counts were correct 3. This patient is not a candidate for a trial of labor in future pregnancies. She will receive misoprostol 800 mcg per rectum, and a CBC, PT,PTT and INR will be collected in the PACU.
[2021-06-13 23:31] LABS: Hematocrit 31.6 % (30.3-42.9); Hemoglobin 10.2 gm/dl (10.1-14.3); Mean Corpuscular HGB Conc 32 % (30-34); Mean Corpuscular Volume 86 fl (79-97); Platelet Count 178 K/mm3 (140-440); Red Blood Count 3.67 M/mm3 (3.65-5.03); Red Cell Distribution Width 14.6 % (13.2-15.2)
[2021-06-13 23:41] LABS: INR 0.98 (0.87-1.13)
[2021-06-13 23:42] LABS: Partial Thromboplastin Time 29.8 Sec. (24.2-36.6)
[2021-06-14] MEDS ORDERED: MORPHINE 2 MG/1 ML INJ IV PRN (00:18)
[2021-06-14] MEDS ORDERED: IBUPROFEN 800 MG TAB PO PRN (00:18)
[2021-06-14] MEDS ORDERED: SIMETHICONE 80 MG CHEW TAB PO PRN (00:18)
[2021-06-14] MEDS ORDERED: NALOXONE 0.4 MG/1 ML INJ IV PRN (00:18)
[2021-06-14] MEDS ORDERED: WITCH HAZEL/ GLYCERIN PAD TP PRN (00:18)
[2021-06-14] MEDS ORDERED: LANOLIN/ZINC/DIMETHICONE (LANSINOH) 7 GM TP PRN (00:18)
[2021-06-14] MEDS ORDERED: MORPHINE 4 MG/1 ML INJ IV PRN (00:18)
[2021-06-14] MEDS: HYDROmorphone 1 MG/1 ML INJ IV PRN ×6 (00:51→19:58)
[2021-06-14] MEDS ORDERED: OXYTOCIN DRIP 30 UNITS/500 ML BAG IV SCH (01:00)
[2021-06-14] MEDS ORDERED: D5W/LACTATED RINGERS 1,000 ML IV SCH (01:00)
[2021-06-14] MEDS ORDERED: ceFAZolin/NS 1 GM/50 ML 1 GM/50 ML BAG IV SCH ×2 (04:00→15:00)
[2021-06-14] MEDS: oxyCODONE /ACETAMINOPHEN 5-325MG TAB PO PRN ×4 (06:19→22:05)
[2021-06-14 06:32] LABS: Hematocrit 33.5 % (30.3-42.9); Hemoglobin 10.7 gm/dl (10.1-14.3); Mean Corpuscular HGB Conc 32 % (30-34); Mean Corpuscular Volume 86 fl (79-97); Platelet Count 172 K/mm3 (140-440); Red Cell Distribution Width 14.7 % (13.2-15.2)
[2021-06-14 06:41] LABS: INR 0.98 (0.87-1.13); Partial Thromboplastin Time 29.6 Sec. (24.2-36.6)
--- NOTE | 2021-06-14 08:29 | Progress Note ---
Assessment and Plan A: POD#1 s/p repeat section at term complicated by hemorrhage Acute blood loss anemia EBL 2438 mL s/p 5 L Crystalloid and 2 units PRBCs Advanced Maternal Age H/o gastric sleeve H/o preeclampsia Genital herpes without lesion or prodrome Increased SMA risk Chronic Neck pain s/p Ortho referral H/o hemorrhage in prior in 2019 requiring uterine artery embolization Suspected thyromegaly, mass of right lobe of thyroid s/p thyroid ultrasound s/p Endocrine referral P: Pt has been observed on labor and delivery then transfer to mother baby unit Avoid NSAIDs Routine postop care Closely monitor clinical status Subjective - Subjective Date of service: 06/14/21 Principal diagnosis: s/p repeat section complicated by hemorrhage Interval history: Pt doing well today, but reports poor pain control due to malfunctioning remote. Del Castillo in place. SCDs in place. Patient reports: appetite normal, pain poorly controlled, no voiding normally (del castillo in place ), no flatus, no bowel movement, no ambulating normally (SCDs in place ) [place]: in NICU Objective - Vital Signs Latest vital signs: Vital Signs Temp Pulse Resp BP Pulse Ox Pulse Ox 06/14/21 08:22 70 98 06/14/21 08:17 77 98 06/14/21 08:12 72 98 06/14/21 08:07 65 97 06/14/21 08:02 78 100 06/14/21 07:58 66 121/73 06/14/21 07:57 73 98 06/14/21 07:52 69 96 06/14/21 07:47 69 98 06/14/21 07:42 68 98 06/14/21 07:37 71 98 06/14/21 07:32 69 98 06/14/21 07:27 76 98 06/14/21 07:22 69 98 06/14/21 07:17 71 98 06/14/21 07:13 66 135/78 06/14/21 07:12 76 98 06/14/21 07:07 78 98 06/14/21 07:02 68 97 06/14/21 06:57 71 97 06/14/21 06:52 72 98 06/14/21 06:47 66 98 06/14/21 06:42 79 98 06/14/21 06:37 80 99 06/14/21 06:32 75 98 06/14/21 06:28 76 138/79 06/14/21 06:27 74 97 06/14/21 06:25 97.6 F 06/14/21 06:22 72 98 06/14/21 06:17 74 98 06/14/21 06:12 86 98 06/14/21 06:07 71 98 06/14/21 06:02 84 96 06/14/21 05:57 73 98 06/14/21 05:52 74 98 06/14/21 05:47 72 98 06/14/21 05:43 80 128/79 06/14/21 05:42 75 98 06/14/21 05:37 74 98 06/14/21 05:32 71 98 06/14/21 05:27 70 98 06/14/21 05:22 69 98 06/14/21 05:17 68 98 06/14/21 05:12 70 97 06/14/21 05:07 68 97 06/14/21 05:02 75 97 06/14/21 04:57 76 98 06/14/21 04:52 64 99 06/14/21 04:47 91 H 100 06/14/21 04:42 90 100 06/14/21 04:37 81 98 06/14/21 04:32 81 100 06/14/21 04:27 70 98 06/14/21 04:22 70 98 06/14/21 04:17 68 98 06/14/21 04:13 66 136/74 06/14/21 04:12 70 98 06/14/21 04:07 68 98 06/14/21 04:02 69 98 06/14/21 03:57 69 98 06/14/21 03:52 63 98 06/14/21 03:47 69 98 06/14/21 03:42 69 98 06/14/21 03:37 69 98 06/14/21 03:32 73 98 06/14/21 03:28 68 127/67 06/14/21 03:27 71 98 06/14/21 03:22 72 98 06/14/21 03:17 70 99 06/14/21 03:12 68 99 06/14/21 03:07 69 99 06/14/21 03:02 71 98 06/14/21 02:57 71 98 06/14/21 02:52 69 98 06/14/21 02:47 70 98 06/14/21 02:43 74 118/81 06/14/21 02:42 69 99 06/14/21 02:37 68 98 06/14/21 02:32 71 98 06/14/21 02:27 69 98 06/14/21 02:22 70 98 06/14/21 02:17 80 98 06/14/21 02:12 69 98 06/14/21 02:07 80 98 06/14/21 02:02 80 98 06/14/21 02:00 98.5 F 06/14/21 01:58 66 107/66 06/14/21 01:57 74 98 06/14/21 01:52 78 98 06/14/21 01:47 77 98 06/14/21 01:42 79 97 06/14/21 01:37 78 97 06/14/21 01:32 72 98 06/14/21 01:27 80 98 06/14/21 01:22 83 98 06/14/21 01:17 72 98 06/14/21 01:13 75 108/61 06/14/21 01:12 79 98 06/14/21 01:07 80 98 06/14/21 01:02 81 98 06/14/21 00:57 81 99 06/14/21 00:56 91 H 87 06/14/21 00:52 66 99 06/14/21 00:47 73 99 06/14/21 00:42 66 100 06/14/21 00:37 61 100 06/14/21 00:32 72 100 06/14/21 00:27 63 137/73 100 06/14/21 00:01 62 28 H 134/80 06/13/21 23:45 98.2 F 64 27 H 136/81 06/13/21 23:30 69 27 H 128/80 06/13/21 23:15 98.2 F 68 24 137/81 06/13/21 23:00 98.4 F 66 26 H 129/83 06/13/21 22:45 98.5 F 71 22 128/79 06/13/21 19:50 75 100 06/13/21 19:44 66 100 06/13/21 19:39 76 100 06/13/21 19:34 78 100 06/13/21 19:28 98.9 F 67 16 100 100 06/13/21 19:23 68 100 06/13/21 19:18 70 100 06/13/21 19:15 73 113/59 06/13/21 19:14 71 119/62 06/13/21 19:13 71 99 06/13/21 19:11 71 134/76 06/13/21 19:09 72 131/77 06/13/21 19:08 70 125/75 99 06/13/21 19:03 66 130/77 99 06/13/21 19:01 73 130/77 06/13/21 18:59 72 128/80 06/13/21 18:58 76 99 06/13/21 18:57 63 124/81 06/13/21 18:55 75 123/82 06/13/21 18:53 63 123/82 99 06/13/21 18:51 62 122/81 06/13/21 18:49 75 127/80 06/13/21 18:48 69 100 06/13/21 18:47 65 127/78 06/13/21 18:45 64 127/79 06/13/21 18:43 74 120/76 99 06/13/21 18:42 82 124/78 06/13/21 18:41 71 133/87 06/13/21 18:40 14 06/13/21 18:39 71 126/82 06/13/21 18:38 74 98 06/13/21 18:37 80 122/79 06/13/21 18:35 95 H 121/71 06/13/21 18:33 80 132/74 100 06/13/21 18:31 71 133/75 06/13/21 18:29 84 137/82 06/13/21 18:28 83 99 06/13/21 18:27 81 129/77 06/13/21 18:26 73 135/78 06/13/21 18:24 152/90 06/13/21 18:23 69 96 06/13/21 18:22 76 155/82 06/13/21 18:19 76 162/105 06/13/21 18:18 73 99 06/13/21 18:17 80 154/90 06/13/21 18:15 87 163/92 06/13/21 18:13 78 153/85 99 06/13/21 18:12 73 150/78 06/13/21 18:10 69 158/100 06/13/21 18:08 72 100 06/13/21 18:06 85 93 06/13/21 18:03 69 100 06/13/21 17:58 63 100 06/13/21 17:54 66 139/94 06/13/21 17:53 64 99 06/13/21 17:48 68 99 06/13/21 17:43 65 97 06/13/21 17:39 64 130/84 06/13/21 17:38 66 98 06/13/21 17:33 76 98 06/13/21 17:28 64 98 06/13/21 17:24 71 140/80 06/13/21 17:23 78 99 06/13/21 17:18 68 100 06/13/21 17:16 18 06/13/21 17:13 62 100 06/13/21 17:09 69 144/77 06/13/21 17:08 65 100 06/13/21 17:03 73 99 06/13/21 16:58 76 100 06/13/21 16:53 67 149/93 99 06/13/21 16:48 65 100 06/13/21 16:43 69 99 06/13/21 16:39 62 137/92 06/13/21 16:38 64 100 06/13/21 16:33 68 100 06/13/21 16:28 63 100 06/13/21 16:24 61 140/88 06/13/21 16:23 62 100 06/13/21 15:04 98.9 F 18 100 06/13/21 15:03 61 100 06/13/21 15:01 63 135/88 06/13/21 14:59 65 145/86 06/13/21 14:58 66 95 Intake and Output 06/13/21 06/14/21 06/14/21 22:59 06:59 14:59 Intake Total 10 Output Total 320 625 Balance -310 -625 Intake: IV 10 Left Hand 10 Output: Urine 320 625 Indwelling Catheter 500 Uretheral (Del Castillo) 20 125 Other: Total, Output Amount 100 Weight 93.44 kg - Exam Breasts: Present: deferred Abdomen: Present: soft (obese ) Uterus: Present: fundal height at umbilicus Extremities: Present: normal Incision: Present: dressed - Labs Labs: Abnormal lab results 06/13/21 06/13/21 06/14/21 Range/Units 15:30 23:10 05:54 WBC 14.2 H 14.4 H (4.5-11.0) K/mm3 Crossmatch See Detail
--- NOTE | 2021-06-14 09:39 | Post Anesthesia Evaluation ---
- Post Anesthesia Evaluation Patient Participated: Yes Airway Patent: Yes Stable Respiratory Function: Yes Nausea/Vomiting: No Temp > 96.8F: Yes Pain Manageable: Yes Adequeate Hydration: Yes Anesthesia Complications: No Block Receding Appropriately: Yes Patient on Ventilator: No
[2021-06-14 16:58] LABS: Hematocrit 35.4 % (30.3-42.9); Hemoglobin 11.9 gm/dl (10.1-14.3)
[2021-06-15] MEDS ORDERED: MEASLES, MUMPS & RUBELLA 12,500 UNIT/0.5 ML VACCINE SUB-Q ONE (00:19)
[2021-06-15] MEDS: HYDROmorphone 1 MG/1 ML INJ IV PRN ×2 (01:17→09:15)
[2021-06-15] MEDS ORDERED: TETANUS,DIPH,PERTUSS(ACELL) VACCINE 0.5 ML SYRINGE IM ONE (06:00)
[2021-06-15] MEDS: oxyCODONE /ACETAMINOPHEN 5-325MG TAB PO PRN ×4 (06:01→20:22)
[2021-06-15 06:31] LABS: Hematocrit 29.6 % (30.3-42.9); Hemoglobin 9.8 gm/dl (10.1-14.3); Mean Corpuscular HGB Conc 33 % (30-34); Mean Corpuscular Volume 85 fl (79-97); Platelet Count 174 K/mm3 (140-440); Red Blood Count 3.48 M/mm3 (3.65-5.03); Red Cell Distribution Width 14.9 % (13.2-15.2)
--- NOTE | 2021-06-15 07:52 | Progress Note ---
Assessment and Plan - Patient Problems (1) delivery delivered Current Visit: Yes Status: Acute Plan to address problem: Continue postoperative care Consider discharge home tomorrow Since blood loss has decreased, will consider use of NSAIDs (2) hemorrhage Current Visit: Yes Status: Acute Subjective - Subjective Date of service: 06/15/21 Principal diagnosis: s/p repeat section complicated by hemorrhage Interval history: The patient is tolerated a clear diet. Attempting to control her pain without the use of NSAIDs. The patient reports ambulating yesterday. She reports that her lochia is minimal. Patient reports: appetite normal, voiding normally : doing well Objective - Vital Signs Latest vital signs: Vital Signs Temp Pulse Resp BP BP Pulse Ox Pulse Ox 06/15/21 06:00 98 06/15/21 04:20 98 06/15/21 01:20 97 06/14/21 23:57 97.8 F 88 20 130/86 98 06/14/21 23:35 97 06/14/21 21:29 97 06/14/21 19:45 97 06/14/21 15:21 98.3 F 77 18 117/72 96 06/14/21 12:27 98 06/14/21 11:44 97.8 F 74 19 131/83 98 06/14/21 10:47 78 99 06/14/21 10:42 75 98 06/14/21 10:37 80 98 06/14/21 10:32 78 98 06/14/21 10:27 83 99 06/14/21 10:22 89 98 06/14/21 10:20 94 H 88 06/14/21 10:17 72 98 06/14/21 10:13 77 127/83 06/14/21 10:12 75 98 06/14/21 10:07 71 97 06/14/21 10:02 71 98 06/14/21 10:00 98 06/14/21 09:57 73 98 06/14/21 09:52 73 98 06/14/21 09:47 71 98 06/14/21 09:42 70 98 06/14/21 09:37 69 98 06/14/21 09:32 70 98 06/14/21 09:28 65 127/87 06/14/21 09:27 71 98 06/14/21 09:22 85 97 06/14/21 09:17 80 98 06/14/21 09:12 68 18 98 06/14/21 09:07 66 98 06/14/21 09:02 88 97 06/14/21 08:57 93 H 98 06/14/21 08:52 78 98 06/14/21 08:50 65 127/82 06/14/21 08:47 69 98 06/14/21 08:42 70 98 06/14/21 08:37 79 98 06/14/21 08:32 74 96 06/14/21 08:27 68 98 06/14/21 08:22 70 98 06/14/21 08:17 77 98 06/14/21 08:12 72 98 06/14/21 08:07 65 97 06/14/21 08:02 78 100 06/14/21 07:58 66 121/73 06/14/21 07:57 73 98 06/14/21 07:52 69 96 Intake and Output 06/14/21 06/15/21 06/15/21 22:59 06:59 14:59 Intake Total 880 Output Total 700 Balance 180 Intake: Oral 780 Intake, Free Water 100 Output: Urine 700 Indwelling Catheter 300 Void 400 Other: Total, Intake Amount 360 Total, Output Amount 400 # Voids Indwelling Catheter 1 Void 1 - Labs Labs: Abnormal lab results 06/13/21 06/15/21 Range/Units 15:30 05:35 WBC 12.4 H (4.5-11.0) K/mm3 RBC 3.48 L (3.65-5.03) M/mm3 Hgb 9.8 L (10.1-14.3) gm/dl Hct 29.6 L (30.3-42.9) % Crossmatch See Detail
--- NOTE | 2021-06-15 11:46 | Consultation ---
History of Present Illness - Reason for Consult Consult date: 06/15/21 Reason for consult: depression, anxiety - Chief Complaint Chief complaint: contractions, spotting, leaking fluid - History of Present Psychiatric Illness The patient was seen today. She was admitted for childbirth. She is calm, cooperative and pleasant. She is smiling and appears to be in an upbeat mood. The patient says she has suffered from depression since 2018. She says she takes Zoloft 200mg. She says it puts her in a good head space but she doesn't feel maximized on it. She states she was on Seroquel for sleep but been off since the . The patient says she is afraid to go outside and stays in her room due to social phobia. She says she used to drink a lot which she states made it easier for her to deal with people. The patient says she stopped drinking after being diagnosed with pancreatitis. She says she uses THC oil for her anxiety. She denies any other illicit drug use. She denies SI/HI or any past attempt of suicide. She also denies hallucinations of any kind. She says she currently see [facility] for psych services and just started therapy. PAST PSYCHIATRIC HISTORY Diagnoses: Depression Suicide attempts or Self-harm behavior: Denies Prior psychiatric hospitalizations: Denies Substance Abuse history: alcohol Previous psychiatric medications tried: zoloft, buspar Outpatient treatment: [facility] PAST MEDICAL HISTORY: None reported Family Psychiatric History: None reported or documented SOCIAL HISTORY Living arrangement: states she lives with family Marital status: Single REVIEW OF SYSTEMS Constitutional: Negative for weight loss ENT: Negative for stridor Respiratory: Negative for cough or hemoptysis All other systems reviewed and are negative MENTAL STATUS EXAMINATION General Appearance and Behavior: Age appropriate, good hygiene, wearing appropriate clothes, good eye contact, calm, cooperative Cooperation: Participating/engaged, but Guarded Psychomotor Behavior: Psychomotor normal Mood: Good Affect and affective range: congruent with stated mood Thought Process: goal directed Thought Content: none Speech: normal tone and pace Suicidal Ideation: Denies Homicidal Ideation: Denies Hallucinations: Denies Delusions: None elicited Impulse Control: good Insight and Judgment: good insight and judgment Memory: good Attention: attentive Orientation: Alert, oriented Assessment and Plan Major Depressive Disorder Generalized Anxiety Disorder Treatment Plan Seroquel 25mg po qhs Vistaril 25mg po BID prn anxiety Medical: Per primary Disposition: Do not recommend acute psychiatric inpatient treatment The patient to follow up with outpatient psych in 7 to 14 days Will sign off. Thanks Case staffed with Dr. Pulido Medications and Allergies Allergies Allergy/AdvReac Type Severity Reaction Status Date / Time lisinopril Allergy Unknown Verified 06/13/21 14:58 Home Medications Medication Instructions Recorded Confirmed Last Taken Type Melatonin 1 cap PO HS PRN 10/17/19 06/13/21 06/12/21 23:00 History Vitamin 1 tab PO DAILY 10/17/19 06/13/21 09/16/20 History Ferrous Sulfate [Feosol 325 MG tab] 325 mg PO BID #60 tablet 11/04/19 06/13/21 Unknown Rx Ondansetron [Zofran Odt] 8 mg PO Q8HR PRN 06/13/21 06/13/21 06/09/21 History Ibuprofen [Motrin] 800 mg PO Q8HR PRN #60 tablet 06/15/21 Unknown Rx QUEtiapine [SEROquel] 25 mg PO DAILY #30 tablet 06/15/21 Unknown Rx hydrOXYzine PAMOATE [Vistaril] 25 mg PO BID PRN #60 capsule 06/15/21 Unknown Rx oxyCODONE /ACETAMINOPHEN [Percocet 1 tab PO Q6HR PRN #30 tablet 06/15/21 Unknown Rx 5/325] Active Meds: Active Medications Acetaminophen (Acetaminophen 325 Mg Tab) 650 mg PO Q4H PRN PRN Reason: Pain, Mild (1-3) Hydromorphone HCl (Hydromorphone 1 Mg/1 Ml Inj) 1 mg IV Q2H PRN PRN Reason: Pain , Severe (7-10) Last Admin: 06/15/21 09:15 Dose: 1 mg Sodium Chloride (Nacl 0.9% 1000 Ml) 1,000 mls @ 0 mls/hr VG DIRECT BOB Dextrose/Lactated Ringer's (D5lr) 1,000 mls @ 125 mls/hr IV DIRECT BOB Last Admin: 06/14/21 00:52 Dose: 125 mls/hr Loperamide HCl (Loperamide 2 Mg Cap) 2 mg PO ONCE PRN PRN Reason: give with Hemabate Magnesium Hydroxide (Magnesium Hydroxide (Mom) Oral Liqd Udc) 30 ml PO QHS PRN PRN Reason: Constip Unrelieved By Senna Methylergonovine Maleate (Methylergonovine Maleate 0.2 Mg/Ml Vial) 0.2 mg IM ONCE PRN PRN Reason: Uterine Bleeding Multi-Ingredient Ointment (Lanolin/Zinc/Dimethicone (Lansinoh) 7 Gm) 1 applic TP PRN PRN PRN Reason: dryness/cracking Naloxone HCl (Naloxone 0.4 Mg/1 Ml Inj) 0.1 mg IV Q2MIN PRN PRN Reason: Res Rate </= 8 or 02 SAT < 92% Ondansetron HCl (Ondansetron 4 Mg/2 Ml Inj) 4 mg IV Q8H PRN PRN Reason: Nausea And Vomiting Last Admin: 06/14/21 12:49 Dose: 4 mg Oxycodone/Acetaminophen (Oxycodone /Acetaminophen 5-325mg Tab) 2 tab PO Q4H PRN PRN Reason: Pain, Moderate (4-6) Last Admin: 06/15/21 06:01 Dose: 2 tab Sodium Chloride (Sodium Chloride 0.9% 10 Ml Flush Syringe) 10 ml IV PRN PRN PRN Reason: LINE FLUSH Mental Status Exam - Vital signs Last Vital Signs Temp 97.5 F L 06/15/21 08:10 Pulse 79 06/15/21 08:10 Resp 18 06/15/21 08:10 BP 136/88 06/15/21 08:10 Pulse Ox 99 06/15/21 08:10 Results Result Diagrams: 06/15/21 05:35 Abnormal lab results 06/13/21 06/15/21 Range/Units 15:30 05:35 WBC 12.4 H (4.5-11.0) K/mm3 RBC 3.48 L (3.65-5.03) M/mm3 Hgb 9.8 L (10.1-14.3) gm/dl Hct 29.6 L (30.3-42.9) % Crossmatch See Detail All other labs normal.
[2021-06-15] MEDS: MAGNESIUM HYDROXIDE (MOM) ORAL LIQD UDC PO PRN ×2 (18:36→21:44)
[2021-06-15] MEDS ORDERED: NICOTINE 7 MG/24 HR PATCH TD ONE (18:51)
[2021-06-15] MEDS: SERTRALINE 100 MG TAB PO SCH (21:42)
[2021-06-16] MEDS: oxyCODONE /ACETAMINOPHEN 5-325MG TAB PO PRN ×5 (02:12→22:30)
[2021-06-16] MEDS: SERTRALINE 100 MG TAB PO SCH (09:56)
--- NOTE | 2021-06-16 10:34 | Progress Note ---
Assessment and Plan A: POD#3 s/p R. C/S at term P: Continue with routine care with discharge tomorrow morning. Subjective - Subjective Date of service: 06/16/21 Principal diagnosis: s/p repeat section complicated by hemorrhage Interval history: POD#3 s/p R. C/S at term. Pt was up and ambulating around the room this morning. Reporting adequate pain control and decreasing lochia. Pt expressing her mood is stable but reporting she is not quite ready to be discharged home today. Patient reports: appetite normal, voiding normally, pain well controlled, flatus [place]: in NICU Objective - Vital Signs Latest vital signs: Vital Signs Temp Pulse Resp BP Pulse Ox Pulse Ox 06/16/21 08:55 99 06/16/21 07:37 98.0 F 87 20 117/71 99 06/16/21 03:12 18 06/16/21 02:12 20 06/16/21 00:45 97.8 F 72 18 112/63 99 06/15/21 21:22 18 06/15/21 20:22 20 06/15/21 19:45 100 Intake and Output 06/15/21 06/16/21 06/16/21 23:59 07:59 15:59 Intake Total 560 360 Balance 560 360 Intake: Oral 320 Intake, Free Water 240 360 Other: Total, Intake Amount 320 # Voids Void 1 1 # Bowel Movements 2
--- NOTE | 2021-06-16 10:46 | Discharge Summary ---
Providers - Providers Date of Admission: 06/13/21 15:21 Date of discharge: 06/16/21 Attending physician: TIMBO ANN 06/14/21 00:18 Consult to Exercise Specialist [CONS] Routine Reason For Exam: [facility] Reason for admission: active labor, section, IUP at term Delivery: Procedure: section (Repeat Classical) Episiotomy: none Laceration: none Incision: normal, dry, intact complications: other ( hemorrhage) Discharge diagnosis: IUP at term delivered [place] baby: male Hospital course: Patient presented to L&D in active labor and went on to have a R. C/S of a viable male . Her course was complicated by hemorrhage and depression/anxiety. Psych consult and follow-up have been initiated. Patient discharged in stable condition. Condition at discharge: Good Disposition: 01 HOME / SELF CARE / HOMELESS Plan - Discharge Medications Prescriptions: Ibuprofen [Motrin] 800 mg PO Q8HR PRN #60 tablet PRN Reason: Pain , Severe (7-10) oxyCODONE /ACETAMINOPHEN [Percocet 5/325] 1 tab PO Q6HR PRN #30 tablet PRN Reason: Pain QUEtiapine [SEROquel] 25 mg PO DAILY #30 tablet hydrOXYzine PAMOATE [Vistaril] 25 mg PO BID PRN #60 capsule PRN Reason: Anxiety Sertraline [Zoloft] 100 mg PO QDAY #30 mg - Provider Discharge Summary Activity: routine Diet: routine Instructions: routine Additional instructions: [] Smoking cessation referral if applicable(refer to patient education folder for contact #) [] Refer to [facility]'s [facility] Booklet Call your doctor immediately for: * Fever > 100.5 * Heavy vaginal bleeding ( >1 pad per hour) * Severe persistent headache * Shortness of breath * Reddened, hot, painful area to leg or breast * Drainage or odor from incision. * Keep incision clean and dry at all times and follow doctor's instructions re garding bathing/showering No sex, heavy lifting or strenuous exercise for 8 weeks. Please call the office to schedule your newborns circumcision. - Follow up plan Follow up: ASHLEY PEDRAZA MD [Primary Care Provider] - 7 Days SHELL HTORNE NP [Advanced Practice Nurse] - 7 Days
[2021-06-17] MEDS: oxyCODONE /ACETAMINOPHEN 5-325MG TAB PO PRN ×2 (04:04→09:16)
[2021-06-17 08:14] VITALS: BP 123/75
[2021-06-17] MEDS: SERTRALINE 100 MG TAB PO SCH (09:13)
== END 2021-06-17 09:48 | disposition home or self-care (01) | DRG 765 ==
LOC: APU 14:35 → TRG 14:35 → LD 15:21 → OB 06-14 11:55
PROVIDERS: ADMIT Obstetrics & Gynecology; ATTEND Obstetrics & Gynecology
PROC: 10D00Z0 Extraction of Products of Conception, High, Open Approach (ICD-10-PCS; principal; 2021-06-13)
PROC: 10H07YZ Insertion of Other Device into Products of Conception, Via Natural or Artificial Opening (ICD-10-PCS; 2021-06-13)
PROC: 30233N1 Transfusion of Nonautologous Red Blood Cells into Peripheral Vein, Percutaneous Approach (ICD-10-PCS; 2021-06-13)
PROC: 3E0234Z Introduction of Serum, Toxoid and Vaccine into Muscle, Percutaneous Approach (ICD-10-PCS; 2021-06-15)
DX: O76 Abnormality in fetal heart rate and rhythm complicating labor and delivery (principal); O72.1 Other immediate postpartum hemorrhage; O10.92 Unspecified pre-existing hypertension complicating childbirth; O98.32 Other infections with a predominantly sexual mode of transmission complicating childbirth; D62 Acute posthemorrhagic anemia; O34.218 Maternal care for other type scar from previous cesarean delivery; A60.00 Herpesviral infection of urogenital system, unspecified; O34.211 Maternal care for low transverse scar from previous cesarean delivery; O69.1XX0 Labor and delivery complicated by cord around neck, with compression, not applicable or unspecified; O90.81 Anemia of the puerperium; O99.345 Other mental disorders complicating the puerperium; F53.0 Postpartum depression; F41.1 Generalized anxiety disorder; Z37.0 Single live birth; Z3A.37 37 weeks gestation of pregnancy; Z23 Encounter for immunization; Z20.822 Contact with and (suspected) exposure to COVID-19; Z88.8 Allergy status to other drugs, medicaments and biological substances; Z90.49 Acquired absence of other specified parts of digestive tract
CPT/HCPCS: 36415; 36430; 59025; 85014; 85018; 85027; 85384; 85610; 85730; 86592; 86850; 86900; 86901; 86920; 88307; G0378; J3490; J7060; J0290; J0690; J1170; J2405; J2590; J2765; J3010; J7120; J7121; P9016; U0003